=== PATIENT | female | born 1940 | race Caucasian/White ===

== ENCOUNTER 2020-10-15 09:13 | Outpatient (REF) | payer MEDICARE, SELFPAY ==
--- NOTE | ~2020-10-15 | MM_ITS ---
EXAMINATION: MM SCREENING DIGITAL BREAST TOMOSYNTHESIS, BILATERAL CLINICAL INFORMATION: Screening. Asymptomatic. The lifetime risk of breast cancer based on the Tyrer-Cuzick Model is 2%. COMPARISON: Mammography: 10/10/2019, 10/04/2018, 09/29/2017, 09/07/2016 TECHNIQUE: Digital breast tomosynthesis is performed in both the craniocaudal and mediolateral oblique views along with computer-aided detection (CAD). Synthesized 2D images are generated from the tomosynthesis. FINDINGS: The breasts are heterogeneously dense, which may obscure small masses (ACR BI-RADS breast composition Category c). The right CC view has small nodular asymmetric density 5 x 6 mm, 8 cm from nipple, more conspicuous when compared with prior studies. There is no definite correlate on MLO view. Finding may be related to summation artifact or incompletely compressed glandular tissue. Patient will be recalled to further characterize. The remainder of the bilateral breasts show no significant changes from prior study. The left breast has 2 biopsy clip markers, both in the inner and outer quadrants. There are stable grouped coarse calcifications upper outer left breast and scattered bilateral round and vascular calcifications again seen. Skin contours are unremarkable. MM/MM tomosynthesis screening BI IMPRESSION: 1. Right: Question of small asymmetric density mid medial breast. 2. Left: No mammographic evidence of malignancy. ASSESSMENT: BI-RADS 0: Incomplete - Need Additional Imaging Evaluation RECOMMENDATION: 1. Additional views of the right breast (3-D spot CC, 3-D rolled CC). 2. Targeted ultrasound if warranted after review of the additional views. 3. Radiology department staff will contact the patient for additional imaging. This patient's information was entered into a reminder system with a target due date for their next mammogram.
== END 2020-10-15 09:14 | disposition home or self-care (01) ==
LOC: HO.MAMMO 09:13
PROVIDERS: Visit Provider Family Medicine
DX: Z12.31 Encounter for screening mammogram for malignant neoplasm of breast (principal)
CPT/HCPCS: 77063; 77067

== ENCOUNTER 2020-10-29 12:21 | Outpatient (REF) | payer MEDICARE, SELFPAY ==
--- NOTE | ~2020-10-29 | MM_ITS ---
EXAMINATION: MM DIAGNOSTIC DIGITAL BREAST TOMOSYNTHESIS, RIGHT TARGETED RIGHT BREAST ULTRASOUND CLINICAL INFORMATION: Question left breast density medial aspect. COMPARISON: Mammography: 10/15/2020 and studies dating back to 07/02/2011. TECHNIQUE: Digital breast tomosynthesis is performed. 2D images are generated from the tomosynthesis. The following views are obtained: Rolled medial and lateral craniocaudal views and spot compression craniocaudal view. FINDINGS: The breasts are heterogeneously dense, which may obscure small masses (ACR BI-RADS breast composition Category c). Supplementary films appear to efface the density which blends with surrounding tissue. Targeted right breast ultrasound about the medial aspect did not demonstrate any abnormal cystic or solid masses. No region of abnormal distal sound shadowing appreciated. Results are provided to the patient at time of visit by the technologist. MM/MM tomosynthesis added views R IMPRESSION: No persistent right breast density seen medially. No mammographic or ultrasound findings to suggest malignancy. ASSESSMENT: BI-RADS 1: Negative RECOMMENDATION: Routine annual mammography screening due in 12 months. This patient's information was entered into a reminder system with a target due date for their next mammogram.
--- NOTE | ~2020-10-29 | US_ITS ---
EXAMINATION: US DIAGNOSTIC ULTRASOUND BREAST, RIGHT CLINICAL INFORMATION: Right breast density. COMPARISON: October 15, 2020 and studies dating back to July 02, 2011. TECHNIQUE: Ultrasound of the breast is performed with real-time pham scale imaging and color Doppler. FINDINGS: Targeted right breast ultrasound about the medial aspect did not demonstrate any abnormal cystic or solid masses. No region of abnormal distal sound shadowing appreciated. Results are provided to the patient at time of visit by the technologist. US/US breast RT limited IMPRESSION: No persistent right breast density seen medially. No mammographic or ultrasound findings to suggest malignancy. ASSESSMENT: BI-RADS 1: Negative RECOMMENDATION: Routine annual mammography screening due in 12 months.
== END 2020-10-29 12:22 | disposition home or self-care (01) ==
LOC: HO.MAMMO 12:21
PROVIDERS: Visit Provider Family Medicine
DX: R92.1 Mammographic calcification found on diagnostic imaging of breast (principal)
CPT/HCPCS: 76642; 77061; 77065

== ENCOUNTER 2021-10-16 12:24 | Outpatient (REF) | payer MEDICARE, SELFPAY ==
--- NOTE | ~2021-10-16 | MM_ITS ---
EXAMINATION: BONE DENSITOMETRY CLINICAL INDICATION: Menopausal. COMPARISON: Previous BD dated 10/10/2019 and baseline BD dated 12/23/2014. TECHNIQUE: Using a [employer] DXA System (software version: 13.1) manufactured by [employer], dual-energy x-ray absorptiometry was performed of the lumbar spine and left hip. The images are of good technical quality. Summary results are attached. FINDINGS: AP SPINE L1-L2 (excluding L3 and L4): The data of L1-L4 has been changed to exclude the L3 and L4 vertebral bodies, because degenerative changes at these levels may cause overestimation of lumbar spine density. Current: BMD 1.321 g/cm2, Z-score 3.0, T-score 1.3, normal, 1.5% increase from previous, 3.3% increase from baseline (<5% change is not significant). Prior: BMD 1.302 g/cm2. Baseline: BMD 1.279 g/cm2. LEFT FEMUR, NECK: Current: BMD 0.878 g/cm2, Z-score 0.9, T-score -1.1, osteopenia. Prior: BMD 0.822 g/cm2. Baseline: BMD 0.864 g/cm2. LEFT FEMUR, TOTAL: Current: BMD 0.884 g/cm2, Z-score 0.9, T-score -1.0, normal, 2.0% decrease from previous, 3.5% decrease from baseline (<5% change is not significant). Prior: BMD 0.902 g/cm2. Baseline: BMD 0.916 g/cm2. IDENTIFIED RISK FACTORS: Low calcium intake, menopause. HISTORY OF FRACTURE: None listed. MEDICATIONS: Calcium supplements or multivitamin, vitamin D. MM/XR DEXA axial skeleton IMPRESSION: 1. DIAGNOSIS: Osteopenia based on the lowest T-score value of -1.1 in the femoral neck applying World Health Organization criteria. 2. 10-YEAR FRACTURE RISK PREDICTION, FRAX: Major osteoporotic fracture (clinical spine, forearm, hip or shoulder) 12.0%. Hip fracture 2.4%. 3. Treatment Recommendations: NOF guidelines recommend consideration for treatment in postmenopausal women and men age 50 and older presenting with the following: -A hip or vertebral (clinical or morphometric) fracture. -T-score less than or equal to -2.5 at the femoral neck or spine after appropriate evaluation to exclude secondary causes. -Low bone mass at the hip or spine and a 10-year fracture probability by FRAX of greater than or equal to 3% for hip fracture or greater than or equal to 20% for major osteoporotic fracture based on the [place] adapted WHO algorithm. 4. Other Recommendations: All treatment decisions require clinical judgment and consideration of individual patient factors, including patient preferences, comorbidities, previous drug use, risk factors not captured in the FRAX model (e.g. frailty, falls, vitamin D deficiency, increased bone turnover, interval significant decline in bone density) and possible under or overestimation of fracture risk by FRAX. Additional medical evaluation for secondary cause of low bone mineral density may be appropriate. FUTURE SCAN RECOMMENDATION: People with diagnosed cases of osteoporosis or at high risk for fracture should have regular bone mineral density tests. For patients eligible for Medicare, routine testing is allowed once every 2 years. The testing frequency can be increased to one year for patients who have rapidly progressing disease, those who are receiving or discontinuing medical therapy to restore bone mass, or have additional risk factors.
--- NOTE | ~2021-10-16 | MM_ITS ---
EXAMINATION: MM SCREENING DIGITAL BREAST TOMOSYNTHESIS, BILATERAL CLINICAL INFORMATION: Screening. Asymptomatic. The lifetime risk of breast cancer based on the Tyrer-Cuzick Model is 2%. COMPARISON: Mammography: 10/29/2020, 10/15/2020, 10/10/2019, 10/04/2018, 09/29/2017, 09/07/2016 TECHNIQUE: Digital breast tomosynthesis is performed in both the craniocaudal and mediolateral oblique views along with computer-aided detection (CAD). Synthesized 2D images are generated from the tomosynthesis. FINDINGS: The breasts are heterogeneously dense, which may obscure small masses (ACR BI-RADS breast composition Category c). Parenchymal pattern is similar to prior studies. There is no developing density or interval mass or architectural abnormality. There are scattered bilateral round and vascular calcifications as well as stable grouped coarse calcifications left breast posterior upper outer quadrant with adjacent biopsy clip marker. The axilla and skin contours are unremarkable. No significant changes. MM/MM tomosynthesis screening BI IMPRESSION: No mammographic evidence of malignancy. ASSESSMENT: BI-RADS 2: Benign RECOMMENDATION: Routine annual mammography screening. This patient's information was entered into a reminder system with a target due date for their next mammogram.
== END 2021-10-16 12:25 | disposition home or self-care (01) ==
LOC: HO.MAMMO 12:24
PROVIDERS: PCP Family Medicine; Visit Provider Family Medicine
DX: Z12.31 Encounter for screening mammogram for malignant neoplasm of breast (principal); Z13.820 Encounter for screening for osteoporosis; Z78.0 Asymptomatic menopausal state
CPT/HCPCS: 77063; 77067; 77080

== ENCOUNTER 2022-10-20 12:17 | Outpatient (REF) | payer MEDICARE, SELFPAY ==
--- NOTE | ~2022-10-20 | MM_ITS ---
EXAMINATION: MM SCREENING DIGITAL BREAST TOMOSYNTHESIS, BILATERAL CLINICAL INFORMATION: Screening. Asymptomatic. COMPARISON: Mammography: This study is compared with prior exams dating back to 2018. TECHNIQUE: Digital breast tomosynthesis is performed in both the craniocaudal and mediolateral oblique views along with computer-aided detection (CAD). Synthesized 2D images are generated from the tomosynthesis. FINDINGS: The breasts are heterogeneously dense, which may obscure small masses (ACR BI-RADS breast composition Category c). There are no significant masses, abnormal calcifications, or other abnormalities. There are few, benign calcifications in each breast. There are tissue markers in the lateral aspect and medial aspect of the left breast from prior benign percutaneous biopsies. MM/MM tomosynthesis screening BI IMPRESSION: No mammographic evidence of malignancy. ASSESSMENT: BI-RADS BI-RADS 2 - Benign Findings RECOMMENDATION: Routine annual mammography screening. 1 year F/U This examination should not preclude the clinical evaluation of a suspicious palpable abnormality. This patient's information was entered into a reminder system with a target due date for their next mammogram.
== END 2022-10-20 12:18 | disposition home or self-care (01) ==
LOC: HO.MAMMO 12:17
PROVIDERS: PCP Family Medicine; Visit Provider Family Medicine
DX: Z12.31 Encounter for screening mammogram for malignant neoplasm of breast (principal)
CPT/HCPCS: 77063; 77067

== ENCOUNTER → 2022-10-20 12:30 | Outpatient (BNV) | payer MEDICARE, SELFPAY | PROVIDERS: PCP Family Medicine; Visit Provider Radiology Diagnostic Radiology | DX: Z12.31 Encounter for screening mammogram for malignant neoplasm of breast (principal) | CPT/HCPCS: 77063; 77067 ==

== ENCOUNTER 2023-10-31 11:47 | Outpatient (REF) | payer MEDICARE, SELFPAY ==
--- NOTE | ~2023-10-31 | MM_ITS ---
EXAMINATION: MM SCREENING DIGITAL BREAST TOMOSYNTHESIS, BILATERAL CLINICAL INFORMATION: Screening. Asymptomatic. COMPARISON: Mammography: Comparison is made with available priors TECHNIQUE: Digital breast mammography with tomosynthesis is performed in both the craniocaudal and mediolateral oblique views along with computer-aided detection (CAD). FINDINGS: The breasts are heterogeneously dense, which may obscure small masses (ACR BI-RADS breast composition Category c). Left marker clips from previous needle core biopsies. There are no significant masses, abnormal calcifications, or other abnormalities. MM/MM tomosynthesis screening BI IMPRESSION: No mammographic evidence of malignancy. ASSESSMENT: BI-RADS BI-RADS 2 - Benign Findings RECOMMENDATION: Routine annual mammography screening. 1 year F/U This examination should not preclude the clinical evaluation of a suspicious palpable abnormality. This patient's information was entered into a reminder system with a target due date for their next mammogram. Electronically signed by: Ilene Mayberry DO 11/11/2023 09:21 AM EDT
== END 2023-10-31 11:48 | disposition home or self-care (01) ==
LOC: HO.MAMMO 11:47
PROVIDERS: PCP Family Medicine; Visit Provider Family Medicine
DX: Z12.31 Encounter for screening mammogram for malignant neoplasm of breast (principal)
CPT/HCPCS: 77063; 77067

== ENCOUNTER → 2023-10-31 12:00 | Outpatient (BNV) | payer MEDICARE, SELFPAY | PROVIDERS: PCP Family Medicine; Visit Provider Internal Medicine | DX: Z12.31 Encounter for screening mammogram for malignant neoplasm of breast (principal) | CPT/HCPCS: 77063; 77067 ==

== ENCOUNTER 2023-11-17 10:07 | Outpatient (REF) | payer MEDICARE, SELFPAY ==
--- NOTE | ~2023-11-17 | US_ITS ---
EXAMINATION: US RETROPERITONEAL LIMITED (RENAL ONLY) CLINICAL INFORMATION: CKD, rule out obstruction. COMPARISON: None available. TECHNIQUE: Real-time imaging of the kidneys. FINDINGS: RIGHT KIDNEY: 10.7 x 4.7 x 4.6 cm (SAG x AP x TRV). The kidney is normal in size, contour, and echogenicity. Renal cortical thickness is normal. No renal calculi or hydronephrosis. Multiple simple cyst measuring up to 5.4 cm, 1.7 cm and 0.9 cm. These are simple cysts. LEFT KIDNEY: 9.7 x 4.0 x 4.2 cm (SAG x AP x TRV). The kidney is normal in size, contour, and echogenicity. Renal cortical thickness is normal. No renal calculi or hydronephrosis. Multiple renal cysts measuring up to 1.2 cm and 1.2 cm. These are simple cysts commonly benign no follow-up recommended. There is a prominence of the renal pelvis without evidence of hydronephrosis. US/US renal BI IMPRESSION: No ultrasound evidence of renal obstruction or hydronephrosis. Bilateral simple renal cysts these are commonly benign no follow-up imaging is indicated. Mild fullness of the left renal pelvis without evidence of momo hydronephrosis. Electronically signed by: Glenna Jones MD 12/25/2023 07:52 PM [place]
== END 2023-11-17 10:08 | disposition home or self-care (01) ==
LOC: HO.US 10:07
PROVIDERS: PCP Family Medicine; Visit Provider Family Medicine
DX: N18.30 Chronic kidney disease, stage 3 unspecified (principal)
CPT/HCPCS: 76775

== ENCOUNTER 2023-11-22 11:49 | Outpatient (REF) | payer MEDICARE, SELFPAY ==
--- NOTE | ~2023-11-22 | US_ITS ---
EXAMINATION: US SCREENING ULTRASOUND BREAST, BILATERAL CLINICAL INFORMATION: Dense breasts on mammography. Screening ultrasound. COMPARISON: 10/29/2020. Mammography 10/31/2023 multiple priors. TECHNIQUE: Ultrasound is performed using grayscale imaging and color Doppler. Imaging is performed to include the four quadrants and retroareolar region. Both breasts are imaged. FINDINGS: Right breast: There is no suspicious finding by ultrasound. There is no solid mass, cystic abnormality, abnormal shadowing, or focal architectural abnormality. Left breast: There is no suspicious finding by ultrasound. There is no solid mass , cystic abnormality, abnormal shadowing, or focal architectural abnormality. US/US breast BI complete IMPRESSION: No suspicious findings on screening breast ultrasound. Recommend continuing routine screening. ASSESSMENT: BI-RADS 1 - Negative RECOMMENDATION: 1 year F/U This patient's information was entered into a reminder system with a target due date for their next mammogram. Electronically signed by: Vinay Monson MD 12/02/2023 02:00 PM EDT
== END 2023-11-22 11:50 | disposition home or self-care (01) ==
LOC: HO.MAMMO 11:49
PROVIDERS: PCP Family Medicine; Visit Provider Family Medicine
DX: N18.30 Chronic kidney disease, stage 3 unspecified (principal)
CPT/HCPCS: 76641; 76857

== ENCOUNTER → 2023-11-22 12:00 | Outpatient (BNV) | payer MEDICARE, SELFPAY | PROVIDERS: PCP Family Medicine; Visit Provider Radiology Diagnostic Radiology | DX: R92.30 Dense breasts, unspecified (principal) | CPT/HCPCS: 76641 ==

== ENCOUNTER 2023-11-24 13:37 | Outpatient (REF) | payer MEDICARE, SELFPAY ==
--- NOTE | ~2023-11-24 | MM_ITS ---
EXAMINATION: BONE DENSITOMETRY CLINICAL INDICATION: Primary hyperparathyroidism. COMPARISON: Previous BD dated 10/16/2021 and baseline BD dated 12/13/2014. TECHNIQUE: Using a Omniture DXA System (software version: 13.1) manufactured by [employer]), dual-energy x-ray absorptiometry was performed of the lumbar spine, left hip and right forearm radius 33%. The images are of good technical quality. Summary results are attached. FINDINGS: LEFT FEMUR, NECK: Current: BMD 0.895 g/cm2, Z-score 1.3, T-score -1.0, normal. Prior: BMD 0.878 g/cm2. Baseline: BMD 0.864 g/cm2. LEFT FEMUR, TOTAL: Current: BMD 0.826 g/cm2, Z-score 0.8, T-score -1.4, osteopenia, 6.6% decrease from previous, 9.8% decrease from baseline (<5% change is not significant). Prior: BMD 0.884 g/cm2. Baseline: BMD 0.916 g/cm2. AP SPINE L1-L2 (excluding L3 and L4): The data of L1-L4 has been changed to exclude the L3 and L4 vertebral bodies, because degenerative sclerosis at these levels may cause overestimation of lumbar spine density. Current: BMD 1.267 g/cm2, Z-score 2.9, T-score 0.9, normal, 4.1% decrease from previous, 0.9% decrease from baseline (<5% change is not significant). Prior: BMD 1.321 g/cm2. Baseline: BMD 1.279 g/cm2. RIGHT FOREARM RADIUS 33%: BMD 0.699 g/cm2, Z-score 0.9, T-score -2.0, osteopenia, 16.1% decrease from baseline (<5% change is not significant). Baseline: BMD 0.833 g/cm2. IDENTIFIED RISK FACTORS: History of fracture (adult), hyperparathyroid, menopause. HISTORY OF FRACTURE: Other, wrist. MEDICATIONS: Calcium, vitamin D. MM/XR DEXA appendicular skeleton IMPRESSION: 1. DIAGNOSIS: Osteopenia based on the lowest T-score value of -2.0 in the forearm radius 33% applying World Health Organization criteria. 2. 10-YEAR FRACTURE RISK PREDICTION, FRAX: Major osteoporotic fracture (clinical spine, forearm, hip or shoulder) 17.4%. Hip fracture 3.4%. 3. Treatment Recommendations: NOF guidelines recommend consideration for treatment in postmenopausal women and men age 50 and older presenting with the following: -A hip or vertebral (clinical or morphometric) fracture. -T-score less than or equal to -2.5 at the femoral neck or spine after appropriate evaluation to exclude secondary causes. -Low bone mass at the hip or spine and a 10-year fracture probability by FRAX of greater than or equal to 3% for hip fracture or greater than or equal to 20% for major osteoporotic fracture based on the [place] adapted WHO algorithm. 4. Other Recommendations: All treatment decisions require clinical judgment and consideration of individual patient factors, including patient preferences, comorbidities, previous drug use, risk factors not captured in the FRAX model (e.g. frailty, falls, vitamin D deficiency, increased bone turnover, interval significant decline in bone density) and possible under or overestimation of fracture risk by FRAX. Additional medical evaluation for secondary cause of low bone mineral density may be appropriate. FUTURE SCAN RECOMMENDATION: People with diagnosed cases of osteoporosis or at high risk for fracture should have regular bone mineral density tests. For patients eligible for Medicare, routine testing is allowed once every 2 years. The testing frequency can be increased to one year for patients who have rapidly progressing disease, those who are receiving or discontinuing medical therapy to restore bone mass, or have additional risk factors. Electronically signed by: Andriy Ayers MD 12/05/2023 08:10 AM EDT
== END 2023-11-24 13:38 | disposition home or self-care (01) ==
LOC: HO.MAMMO 13:37
PROVIDERS: PCP Family Medicine; Visit Provider Family Medicine
DX: Z13.820 Encounter for screening for osteoporosis (principal); E21.0 Primary hyperparathyroidism
CPT/HCPCS: 77081

== ENCOUNTER 2024-01-30 09:48 | Outpatient (AMB) | payer MEDICARE, SELFPAY ==
--- OUTSIDE RECORDS SUMMARY | 2024-01-30 09:52 | XMS_ITS ---
Author Organization Azar Dewey III, MD Address [address] [place] [address] Care Team Providers Care Airworthiness Safety Inspector Name Role Phone Elvia ALVAREZ, Aristeo Primary Care Provider Unavaila Azar Brambila Unavailable [phone] REASON FOR VISIT Followup Encounters Encounter Location Date Provider Diagnosis Azar Dewey III, MD [address] [place] [address] [place] [address] 11/14/2023 Azar Dewey Plan Of Treatment Next Appt Details Provider Name:Azar [place]wey, 05/16/2024 11:15:00 AM, [address] [place] [address] [address], [place], [address], Progress Notes * Shayne MARTINEZOB: 2 (83 yo F)Acc No.[id number]:11/14/2023 Progress Notes Patient:?Theodora MARTINEZ Provider:?Azar [place] MD :1940???Age:82 Y???Sex:Female D ate:11/14/2023 [facility] [place] [place] Pcp:Aristeo Gan MD Subjective: * Chief Complaints: * ???1. Followup. * Medical History:? Objective: * Vitals:? Assessment: Plan: * Treatment: * Images: * The named appointment provid er may or may not be the originator of this progress note, and it is not deemed complete until electronically signed by the appointment provider. Sign off status: Pending * Provider:?Azar [place] MD Date:?08/2023 Generated for Baldo bey/Dasha/Steve on:?01/30/2024 09:51 AM EST
--- OUTSIDE RECORDS SUMMARY | 2024-01-30 09:52 | XMS_ITS | Continuity of Care Document ---
Author Organization [facility] [address] [place] [address] Phone [phone] Care Team Providers Care Abrasive Wheel Molder Name Role Phone Aristeo Gan M.D. Care Team Information Receiv er [phone] Problems Active Problems Provider Date Hypercholesterolemia Deniz Chavez M.D. Onset : 01/04/2022 History of cerebrovascular accident Deniz burris M.D. Onset: 01/04/2022 Primary hyperparathyroidism Kp Rodriguez Onset: 01/04/2022 Essential hypertension Deniz Chavez M.D. Ons et: 01/04/2022 Social History Type Date Description Comments Sex Unknown Tobacco Use Start: Unknown Never Smoked Cigarettes ETOH Use Denies alcohol use Allergies and adverse reactions Description No Known Drug Allergies Medications Active Medications SIG Qnty Indications Ordering Provider Date Clopidogrel Wgyupdnkn02sk Tablets Take 1 Tablet By Mouth Every Day Aristeo Gan M.D. Losartan Prqlvzdlz627ly Tablets Take 1 Tablet By Mouth Every Day Aristeo Gan M.D. Atorvastatin Togxrpk02eo Tablets Take 1 Tablet By Mouth Every Day Aristeo Gan M.D. Amlodipine Vtpbpjhq5jm Tablets Take 1 Tablet By Mouth Every Day Aristeo Gan M.D. Metformin SNJ0249gn Tablets Take half Tablet By Mouth Twice A Day Aristeo Gan M.D. Vital Signs Date Vital Result Comment 01/04/2022 1:30pm BP Systolic 160 mmHg BP Diastolic 68 mmHg Heart Rate 89 /min Height 63 inches 5'3 Weight 138.00 lb BMI (Body Mass Index) 24.4 kg/m2 Medical Devices Description No Information Available Encounters Type Date Location Provider Dx Diagnosis Office Visit 01/04/2022 1:30p Main Office Deniz Chavez M.D. I10 Essential (primary) hypertension E78.00 Pure hypercholestero lemia, unspecified E21.0 Primary hyperparathy roidism Assessments Date Code Description Provider 01/04/2022 I10 Essential hypertension Deniz Chavez M.D. 01/04/2022 E78.00 Hypercholesterolemia Deniz mishra M.D. 01/04/2022 E21.0 Primary hyperparathyroidism Deniz Chavez M.D. Plan of Treatment No Information Available Functional Status Description No Information Available Mental Status Description No Information Available Referrals Refer to Dr Reason for Referral Status Appt Deniz Mendez M.D. Created [address] [place] [address] [address] [place] [address] [phone]
--- OUTSIDE RECORDS SUMMARY | 2024-01-30 09:52 | XMS_ITS ---
Author Organization Azar [place] III, MD Address [address] [place] [address] Care Team Providers Care Construction Economist Name Role Phone Aristeo Gan MD Primary Care Provider Unavaila Azar Brambila Unavailable [phone] Allergies Allergen (clinical drug ingredient) Drug/Non Drug [...] Date Provider Diagnosis Azar [place] III, MD [address] [place] [address] [place] [address] 11/16/2023 Azar [place] Iron deficiency anemia, unspecified [...] 6 Months,, Reason : ov Provider Name:Azar [place], 05/16/2024 11:15:00 AM, [address] [place] [address] [address], [place], [address], Progress Notes * Shayne MARTINEZOB: 2 (82 yo F)Acc No.[id number]:11/16/2023 Progress Notes Patient:?Theodora MARTINEZ Provider:?Azar [place] MD :1940???Age:82 Y???Sex:Female D ate:11/16/2023 Address:[address] [place], [place] [id number] Pcp:Aristeo Gan MD Subjective: * Chief Complaints: * ???Iron deficiencyHyperlipid emiaHypertensionPeripheral vascular diseaseCarotid stenosisDiabetesHistory of stroke * HPI: ???COVID-19 Screening:?Questions?Have you experienced fever, chills, cough, sore throat, shortness of breath, difficulty breathing, muscle aches, loss of taste or smell??No ?Have you been exposed to the virus within the last 10 days??No ?Have you travelled internationally in the last 10 days??No ?Have you been exposed to COVID-19 in the past??Yes ???:?The patient, an 82-year-old female, visited the doctor [...] 66 hemoglobin A1c 5.9 ferritin 27. * ROS:?General/Constitutional:?pain?only normal aches and pains.?Chills?denies.?Fatigue?admits.?Fever?denies.?ENT:?Decreased hearing?mild.?Respiratory:?Cough?denies.?Cardiovascular:?Chest pain with exertion?denies.?Dyspnea on exertion?denies.?Shortness of breath?denies.?Gastrointestinal:?Constipation?occasional.?Decreased appetite?denies.?Diarrhea?denies.?Heartburn?denies.?Nausea?denies.?Rectal bleeding?denies.?Vomiting?denies.?Hematology:?bruising?denies.?petechiae?denies.?Swollen glands?none have been noted.?Genitourinary:?Frequent urination?at night.?Musculoskeletal:?Muscle aches?denies.?Painful joints?denies.?Sciatica?denies.?Weakness?denies.?Skin:?Itching?denies.?Rash?denies.?Skin lesion(s)?denies.?Neurologic:?Difficulty speaking?denies.?Dizziness?denies.?Headache?denies.?Low back pain?denies.?Psychiatric:?Depressed mood?denies.? * Medical History:? * Surgical History:?Cataract s urgery 08/2020No history * Hospitalization/Major Diagno stic Procedure:?No history * Family History:?Father: dece ased 72 yrs, stomach cancer, diagnosed with Cancer.?Mother: 63 yrs, diabetes mellitus, heart attack, diagnosed with DM.?1 brother(s) , 1 sister(s) - healthy. 2 daughter(s) - healthy. .? Severe diabetes. * Social History:?Tobacco Use:?Tobacco Use/Smoking?Patient is a?nonsmoker ?Additional Findings: Tobacco Non-User?Aggressive non-smoker ???She is a nonmoker. Her PCP is Edwin Wang. She is not a Catholic. 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 She was born in [place], [place]. * Medications:?TakingLosartan Potassium 25 MG Tablet 1 tablet Orally [...] reviewed and reconciled with the patient * Allergies:?No Known Drug All ergyno[Allergies Verified] Objective: * Vitals:?Ht: 62, Wt:139, BMI: 25.42, BP:136/74, HR:77, Temp:97.3, Wt-k.05. * Examination: ???General Examination: ?GENERAL APPEARANCE:?pleasant, well nourished, well developed, in no acute distress, calm and relaxed, overweight, elderly woman.?HEAD:?atraumatic, normocephalic.?EYES:?eomi, perrla, anicteric, conjugate.?EARS:?normal.?NOSE:?septum intact.?ORAL CAVITY:?normal, unremarkable.?NECK/THYROID:?no jugular venous distention, no carotid bruit, thyroid normal.?LYMPH NODES:?no enlarged lymph nodes,spleen normal.?SKIN:?no suspicious lesions, anicteric.?HEART:?no clicks, gallops, murmurs, or rubs, regular rhythm, S1, S2 normal, no s3, or vascular bruits.?LUNGS:?clear to auscultation .?BREASTS:?Not examined.?ABDOMEN:?bowel sounds normal, no ascites, no organomegaly, no mass.?RECTAL EXAM:?not examined.?MUSCULOSKELETAL:?extremities unremarkable, no clubbing, cyanosis or edema.?PERIPHERAL PULSES:?Both carotids are palpable without bruits.?NEUROLOGIC:?alert and oriented, cranial nerves 2-12 grossly intact, deep tendon reflexes 2+ symmetrical, motor strength normal upper and lower extremities, sensory exam intact.?PSYCH:?alert, oriented.? Assessment: * Assessment: 1.?Iron deficiency anemia, u nspecified iron deficiency - D50.9 (Primary)???Notes :Her hematocrit and mean cell volume and ferritin are all in the normal range. Her ferritin is in the normal range at 27. She is no longer taking the iron supplementation. She will be followed carefully at long intervals without it.???2.?Overweight - E66.3???Notes :She is very slightly overweight.? She will stabilize her weight at this level and pursue a healthy Mediterranean diet limiting calories.???3.?Essential hypertension - I10???Notes :Her blood pressure today is 130/70. No change in her regimen was made.???4.?Diabetes mellitus - E11.9???Notes :Her hemoglobin A1c is 5.9. Her fasting glucose was 135. No change in her regimen as needed.???5.?History of stroke - Z86.73???Notes :She suffered a TIA in 2008.? She has mild carotid stenosis.? She will continue on current medications.??? Plan: * Treatment: 2.?Overweight?LAB: PROFILE, RANDOM (COMPREHENSIVE METABOLIC) ?LAB: CBC WITH AUTO DIFF ?LAB: RETIC ?LAB: Ferritin 3.?Others? Continue Ferrous Gluconate Tablet, 324 (38 Fe) MG, TAKE 1 TABLET BY MOUTH TWICE A DAY WITH WATER OR JUICE BETWEEN MEALS.?? * Procedure Codes:? * Preventive Medicine:? ??Counseling:?Care goal follow-up plan:?Counseling for abnormal BMI given?Yes ?Above Normal BMI Follow-up?Dietary management education, guidance, and counseling, Dietary needs education ??DM Care Plan:?Patient Lifestyle Goals?Patient wants to be able to manage diabetes without too much effort.?Treatment Goals?Diabetic Diet to support management, Blood Sugars less than < 115, HbA1C < 7.0.?Barriers?no barriers.?Self-Managment Goals?Work on weight loss, with a goal of losing 1 lb per week, Stop drinking juice and/or soda, replace with more water.? * Follow Up:?6 Months, (Reason : ov) * Images: * Sign off status: Completed true * Provider:?Azar [place] MD Date:?10/2023 Generated for Baldo bey/Dasha/eTransmitting on:?01/30/2024 09:51 AM EST History and Physical Notes * HPI (History of Present Illness) Category Sub-Category Detail Notes COVID-19 Screening Questions Have you had any new onset fever, chills, cough, congestion, sore throat, shortness of breath, muscle aches?: No Have you been exposed to the virus withi n the last 10 days?: No Have you travelled internationally in [facility] last 10 days?: No Have you [...]
--- OUTSIDE RECORDS SUMMARY | 2024-01-30 09:52 | XMS_ITS ---
Author Organization Azar [place] III, MD Address [address] [place] [address] Care Team Providers Care Electronics Technology Instructor Name Role Phone Aristeo Gan MD Primary Care Provider Unavaila Azar Brambila Unavailable [phone] Allergies Allergen (clinical drug ingredient) Drug/Non Drug [...] Date Provider Diagnosis Azar [place] III, MD [address] [place] [address] [place] [address] 07/15/2023 Azar Dairne Iron deficiency anem ia, unspecified iron deficiency [...] Up: 4 Months, Reason: OV Provider Name:Azar Dairne, 05/16/2024 11:15:00 AM, [address] [place] [address] [address], [place], [address], Progress Notes * Shayne MARTINEZOB: 2 (82 yo F)Acc No.[id number]:07/15/2023 Progress Notes Patient:?Theodora Martinez Provider:?Azar [place] MD :1940???Age:82 Y???Sex:Female D ate:07/15/2023 Address:[facility] [place] [facility] Pcp:Aristeo Gan MD Subjective: * Chief Complaints: * ???Iron deficiencyDiabetesPe ripheral vascular diseaseHypertensionHypercalcemia * HPI: ???COVID-19 Screening:? She returns for evaluattion of her iron [...] 127 triglycerides 1:15 HDL 47 LDL 59. ?Questions?Have you experienced fever, chills, cough, sore throat, shortness of breath, difficulty breathing, muscle aches, loss of taste or smell??No ?Have you been exposed to the virus within the last 10 days??No ?Have you travelled internationally in the last 10 days??No ?Have you been exposed to COVID-19 in the past??No * ROS:?General/Constitutional:?pain?only normal aches and pains.?Chills?denies.?Fatigue?admits.?Fever?denies.?ENT:?Decreased hearing?in both ears.?Respiratory:?Cough?denies.?Cardiovascular:?Chest pain with exertion?denies.?Dyspnea on exertion?denies.?Shortness of breath?denies.?Gastrointestinal:?Constipation?occasional.?Decreased appetite?denies.?Diarrhea?denies.?Heartburn?denies.?Nausea?denies.?Rectal bleeding?denies.?Vomiting?denies.?Hematology:?bruising?denies.?petechiae?denies.?Swollen glands?none have been noted.?Genitourinary:?Frequent urination?at night.?Musculoskeletal:?Muscle aches?denies.?Painful joints?denies.?Sciatica?denies.?Weakness?denies.?Skin:?Itching?denies.?Rash?denies.?Skin lesion(s)?denies.?Neurologic:?Difficulty speaking?denies.?Dizziness?denies.?Headache?denies.?Low back pain?denies.?Psychiatric:?Depressed mood?denies.? * Medical History:? * Surgical History:?Cataract s urgery 08/2020 * Hospitalization/Major Diagno stic Procedure:?Denies Past Hospitalization * Family History:?Father: dece ased 72 yrs, stomach cancer, diagnosed with Cancer.?Mother: 63 yrs, diabetes mellitus, heart attack, diagnosed with DM.?1 brother(s) , 1 sister(s) - healthy. 2 daughter(s) - healthy. .? * Social History:?Tobacco Use:?Tobacco Use/Smoking?Patient is a?nonsmoker ?Additional Findings: Tobacco Non-User?Aggressive non-smoker ???She is a nonmoker. Her PCP is Edwin Wang. She is not a Gnosticism. 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 She was born in [place], [place]. * Medications:?TakingLosartan Potassium 25 MG Tablet [...] All ergyno[Allergies Verified] Objective: * Vitals:?Ht: 62, Wt:140, BMI: 25.6, BP:148/79, HR:89, Temp:97.0, Wt-k.5. * Examination: ???General Examination: ?GENERAL APPEARANCE:?pleasant, well nourished, well developed, in no acute distress, calm and relaxed , overweight , elderly woman.?HEAD:?atraumatic, normocephalic.?EYES:?eomi, perrla, anicteric, conjugate.?EARS:?normal.?NOSE:?septum intact.?ORAL CAVITY:?normal, unremarkable.?NECK/THYROID:?no jugular venous distention, no carotid bruit, thyroid normal.?LYMPH NODES:?no enlarged lymph nodes,spleen normal.?SKIN:?no suspicious lesions, anicteric.?HEART:?no clicks, gallops, murmurs, or rubs, regular rhythm, S1, S2 normal, no s3, or vascular bruits.?LUNGS:?clear to auscultation .?BREASTS:?not examined.?ABDOMEN:?bowel sounds normal, no ascites, no organomegaly, no mass , overweight.?RECTAL EXAM:?not examined.?MUSCULOSKELETAL:?extremities unremarkable, no clubbing, cyanosis or edema.?PERIPHERAL PULSES:?normal.?NEUROLOGIC:?alert and oriented, cranial nerves 2-12 grossly intact, deep tendon reflexes 2+ symmetrical, motor strength normal upper and lower extremities, sensory exam intact.?PSYCH:?alert, oriented.? Assessment: * Assessment: 1.?Iron deficiency anemia, u nspecified iron deficiency - D50.9 (Primary), Her hematocrit and mean cell volume and ferritin are all in the normal range. She is no longer taking the iron supplementation. She will be followed carefully at long intervals without it.?2.?Overweight - E66.3, She is very slightly overweight. We discussed diet and nutrition. We made a plan to lose weight at a rate of one half of a pound per week.?3.?Diabetes mellitus - E11.9, Her hemoglobin A1c is 5.8. Her fasting glucose was 97. No change in her regimen as needed.?4.?Hyperlipidemia type II - E78.01, Her lipids are stable and in near target range. No change in her regimen as needed.? Plan: * Treatment: 2.?Overweight?LAB: PROFILE, FASTING (COMPREHENSIVE METABOLIC) ?LAB: CBC WITH AUTO DIFF ?LAB: Ferritin ?LAB: Lipid Panel ?LAB: Microalbumin, Random ?LAB: Hemoglobin A1c 3.?Diabetes mellitus?LAB: PROFILE, FASTING (COMPREHENSIVE METABOLIC) ?LAB: CBC WITH AUTO DIFF ?LAB: Ferritin ?LAB: Lipid Panel ?LAB: Microalbumin, Random ?LAB: Hemoglobin A1c 4.?Hyperlipidemia type II?LAB: PROFILE, FASTING (COMPREHENSIVE METABOLIC) ?LAB: CBC WITH AUTO DIFF ?LAB: Ferritin ?LAB: Lipid Panel ?LAB: Microalbumin, Random ?LAB: Hemoglobin A1c 5.?Others? Continue Ferrous Gluconate Tablet, 324 (38 Fe) MG, TAKE 1 TABLET BY MOUTH TWICE A DAY WITH WATER OR JUICE BETWEEN MEALS.?? * Procedure Codes:? * Preventive Medicine:? ??Counseling:?Care goal follow-up plan:?Counseling for abnormal BMI given?Yes ?Above Normal BMI Follow-up?Dietary management education, guidance, and counseling * Follow Up:?4 Months (Reason: OV) * Images: * Sign off status: Completed true * Provider:?Azar [place] MD Date:?08/2023 Generated for Printi ng/Dasha/eTransmitting on:?01/30/2024 09:51 AM EST History and Physical [...]
--- OUTSIDE RECORDS SUMMARY | 2024-01-30 09:52 | XMS_ITS | Patient Health Record ---
Author Organization Azar Dewey III, MD Address [address] [place] [address] Care Team Providers Care Bessemer Regulator Name Role Phone Aristeo Gan MD Primary Care Provider Unavaila Azar Brambila Unavailable [phone] Allergies Allergen (clinical drug ingredient) Drug/Non Drug Allergy documented on EMR Reaction Allergy Type Onset Date Status No Known Drug Allergy Unknown Drug Allergy Active Reason For Referral No Information Medications Medication SIG (Take, Route, Frequency, Duration) [...] 1 tablet Orally Once a day Active Immunizations Vaccine Route Administration Date Status Comme nts Influenza Unknown 11/12/2013 Administered Social History Tobacco Use: Social History Observation Description Date Details (start date - stop date) Never Smoker NA - NA Tobacco Use/Smoking Question Answer Notes Patient is a nonsmoker Additional Findings: Tobacco Non-User Aggressive non-smoker Alcohol Screen Question Answer Notes Did you have a drink containing alcohol in the p ast year? No Points 0 Interpretation Negative Problems Problem Type SNOMED Code ICD Code Onset Dates Problem Status W/U Status Risk Notes Problem 485697022 Overweight (E66.3) Active confirmed She is very slightly overweight. She will stabilize her weight at this level and pursue a healthy Mediterranean diet limiting calories. Problem 59298795 Diabetes mellitus (E11.9) Active confirmed Her hemoglobin A1c is 5.9. Her fasting glucose was 135. No change in her regimen as needed. Problem 32174474 Hypercalcemia (E83.52) Active confirmed The calcium level is now normal. Problem 07101959 Iron deficiency anemia, unspecified iron deficiency (D50.9) Active confirmed Her hematocrit and mean cell volume and ferritin are all in the normal range. Her ferritin is in the normal range at 27. She is no longer taking the iron supplementation. She will be followed carefully at long intervals without it. Problem 03898402 Essential hypertension (I10) Active confirmed Her blood pressure today is 130/70. No change in her regimen was made. Problem 915445886 Peripheral vascular disease (I73.9) Active confirmed She has know n atherosclerosis of her carotid arteries. She free of any symptoms today. Problem 292174846 History of stroke (Z86.73) Active confirmed She suffered a TIA in 2008. She has mild carotid stenosis. She will continue on current medications. Problem 26123415 Carotid artery stenosis (I65.29) Active confirmed She remains asymptomatic and under the care of the vascular surgeon. Problem Pure hypercholesterole tran (109895821) Hyperlipidemia type II (E78.01) Active confirmed Her lipids are stable and in near target range. No change in her regimen as needed. Vital Signs Heart Rate 77 /min 11/16/2023 Temperature 97.3 degrees Fahrenheit 11/16/2023 Blood pressure diastolic 74 mm Hg 11/16/2023 Height 62 in 11/16/2023 Blood pressure systolic 136 mm Hg 11/16/2023 Weight 139 lbs 11/16/2023 BMI 25.42 kg/m2 11/16/2023 Encounters Encounter Location Date Provider Diagnosis Azar Dewey III, MD [address] [place] [address] [place] [address] 07/15/2023 Azar Dewey Iron deficiency anem ia, unspecified iron deficiency D50.9 ; Overweight E66.3 ; Diabetes mellitus E11.9 and Hyperlipidemia type II E78.01 Azar Dewey III, MD [address] [place] [address] [place] [address] 11/16/2023 Azar Dewey Iron deficiency anem ia, unspecified iron deficiency D50.9 ; Overweight E66.3 ; Essential hypertension I10 ; Diabetes mellitus E11.9 and History of stroke Z86.73 Assessments Encounter Date Diagnosis (ICD Code) Assessment Notes Treat ment Notes Treatment Clinical Notes 07/15/2023 Overweight (ICD-10 - E66.3) She is very slightly overweight. We discussed diet and nutrition. We made a plan to lose weight at a rate of one half of a pound per week. 07/15/2023 Iron deficiency anemia, unspecified iron deficiency [...] a healthy Mediterranean diet limiting calories. 11/16/2023 Iron deficiency anemia, unspecified iron deficiency (ICD-10 - D50.9) Her hematocrit and mean cell volume and ferritin are all in the normal range. Her ferritin is in the normal range at 27. She is no longer taking the iron supplementation. She will be followed carefully at long intervals without it. 07/15/2023 Diabetes mellitus (ICD-10 - E11.9) Her hemoglobin A1c is 5.8. Her fasting glucose was 97. No change in her regimen as needed. 11/16/2023 Essential hypertension (ICD-10 - I10) Her blood pressure today is 130/70. No change in her regimen was made. 07/15/2023 Hyperlipidemia type II (ICD-10 - E78.01) Her lipids are stable and in near target range. No change in her regimen as needed. 11/16/2023 Diabetes mellitus (ICD-10 - E11.9) Her hemoglobin A1c is 5.9. Her fasting glucose was 135. No change in her regimen as needed. 11/16/2023 History of stroke (ICD-10 - Z86.73) She suffered a TIA in 2008. She has mild carotid stenosis. She will continue on current medications. Plan Of Treatment Pending Test Test Name Order Date PROFILE, FASTING (COMPREHENSIVE METABOLI C) 01/14/2023 PROFILE, FASTING (COMPREHENSIVE METABOLI C) 07/15/2023 PROFILE, RANDOM (COMPREHENSIVE METABOLIC ) 01/08/2022 PROFILE, RANDOM (COMPREHENSIVE METABOLIC ) 12/21/2018 PROFILE, RANDOM (COMPREHENSIVE METABOLIC ) 12/27/2019 PROFILE, RANDOM (COMPREHENSIVE METABOLIC ) 06/16/2018 PROFILE, RANDOM (COMPREHENSIVE METABOLIC ) 11/16/2023 PROFILE, RANDOM (COMPREHENSIVE METABOLIC ) 07/09/2021 PROFILE, RANDOM (COMPREHENSIVE METABOLIC ) 07/09/2022 PROFILE, RANDOM (COMPREHENSIVE METABOLIC ) 07/23/2019 PROFILE, RANDOM (COMPREHENSIVE METABOLIC ) 03/23/2019 PROFILE, RANDOM (COMPREHENSIVE METABOLIC ) 12/26/2020 HEMOGLOBIN A1C (GLYCOHEMOGLOBIN) 019 CALCIUM 03/23/2019 CALCIUM 07/23/2019 FERRITIN 07/23/2019 FERRITIN 12/26/2020 FERRITIN 03/23/2019 FERRITIN 12/21/2018 FERRITIN 12/27/2019 FERRITIN 06/16/2018 FERRITIN 07/09/2022 CBC w DIFF 07/09/2022 CBC w DIFF 07/23/2019 CBC w DIFF 01/08/2022 CBC w DIFF 12/26/2020 CBC w DIFF 03/23/2019 CBC w DIFF 12/21/2018 CBC w DIFF 07/09/2021 CBC w DIFF 12/27/2019 CBC w DIFF 06/16/2018 RETICULOCYTE COUNT,CORRECTED 12/21/2018 CBC WITH AUTO DIFF 01/14/2023 CBC WITH AUTO DIFF 07/15/2023 CBC WITH AUTO DIFF 11/16/2023 RETIC 11/16/2023 Ferritin 11/16/2023 Ferritin 01/08/2022 Ferritin 01/14/2023 Ferritin 07/15/2023 Ferritin 07/09/2021 Lipid Panel 01/14/2023 Lipid Panel 07/15/2023 Microalbumin, Random 07/15/2023 Microalbumin, Random 01/14/2023 Hemoglobin A1c 01/14/2023 Hemoglobin A1c 07/15/2023 Next Appt Details Provider Name:Azar Dewey, 05/16/2024 11:15:00 AM, [address] [place] [address] , [address], [place], [address], Insurance Providers Payer Name Payer Address Payer Phone Subscriber Number Group Number Insured Name Patient Relationship to Insured Coverage Start Date Coverage End Date [facility] [address] [place] [address] [phone] [id number] Theodora Mccormack Self - patient is the insured MEDICARE NGS [address] [place] [phone] [id number] Theodora Mccormack Self - patient is the insured Medical (General) History Medical History History ICD Code hypertension diabetes mellitus stroke 2008 anemia hyperlipidemia bilateral carotid stenosis postmenopausal Surgical History Surgery Date(Month/Year) Cataract surgery 08/2020 No history Hospitalization History Reason Date(Month/Year) No history
[2024-01-30 09:55] VITALS: BP 160/70; PULSE 99; O2SAT 98; BMI 23.9
--- NOTE | 2024-01-30 09:55 | HO.NEPHOV_ITS ---
Vital Signs 01/30/24 09:55 01/30/24 10:11 Height 5 ft 3 in Weight 135 lb BMI 23.9 BP 160/70 H 144/70 H Blood Pressure Location Lt brachial Lt brachial Position Sitting Sitting Pulse 99 Pulse Source Pulse Oximeter Pulse Oximetry (%) 98 Oxygen Delivery Method Room Air Intake Visit Reasons: ENP: CKD STG3A/ conf Senior Attorney Required: No Accompanied by: Self / Same As Patient Allergies No Known Allergies Allergy (Verified 01/30/24 09:58) Medication List - Last Reconciled 01/30/24 by Branden Conley MD amlodipine 5 mg PO DAILY aspirin 81 mg PO DAILY atorvastatin 40 mg PO DAILY ferrous gluconate 324 mg PO DAILY losartan 100 mg PO DAILY metformin 1,000 mg PO DAILY HPI Comments Details: Theodora is a pleasant 83-year-old woman with history of hypertension. She has mild CKD with a creatinine 1.01 She had mild hypercalcemia in the range of 10.5. In the past she did not have any monoclonal proteins. [place] lambda chain were checked and ratio was normal She has history of chronic anemia she sees Dr. Dewey. She has been treated for iron deficiency anemia. She has been taking vitamin-D 1000 units once a day for quite some time. [facility] Medical History (Updated 01/30/24 @ 10:08 by Branden Conley MD) Tremor of both hands Primary hyperparathyroidism Prediabetes PAD (peripheral artery disease) Iron deficiency anemia Hypertension Hyperlipidemia Hypercalcemia CKD (chronic kidney disease), stage III Anemia Review of Systems Const Denies fever(s) and Denies weight loss Card Denies chest pain Resp Denies cough and Denies hemoptysis GI Denies abdominal pain, Denies diarrhea and Denies nausea Musc Denies back pain Neuro Denies focal weakness Physical Exam Vital Signs: Last Vital Signs Pulse 99 01/30/24 09:55 BP 160/70 H 01/30/24 09:55 Pulse Ox 98 01/30/24 09:55 Oxygen Delivery Method Room Air 01/30/24 09:55 BMI result Body Mass Index 23.9 Const General: comfortable; No acute distress Orientation/consciousness: patient oriented x3 Eyes General: appearance normal, both eyes and all related structures Visual Cedillo: normal visual cedillo by confrontation Neck Neck: Yes supple and Yes no JVD Resp Effort & Inspection: normal respiratory effort and respiratory effort not decreased Auscultation: rhonchi Cardio Palpation: no palpable S3 and no palpable S4 Heart sounds: no rubs GI Inspection: Yes normal to inspection Palpation (GI): Soft to palpation Percussion: Yes normal to percussion Auscultation: normal bowel sounds General: Yes no CVA tenderness Back/Spine/Pelvis Back: no CVA tenderness Skin General skin exam: no petechiae and no purpura Neuro General: patient oriented x3 and no focal motor deficits Extrem General: No clubbing and No edema Results Reviewed Nephrology Results: Hgb 11.8 g/dL (12.0-16.0) L 03/14/19 WBC 12.5 X10*3/uL (4.8-10.8) H 03/14/19 Plt Count 164 X10*3/uL (160-400) 03/14/19 Sodium 141 MMOL/L (135-145) 03/14/19 Potassium 4.5 MMOL/L (3.3-5.1) 03/14/19 Chloride 105 MMOL/L (96-108) 03/14/19 BUN 17 MG/DL (9-16) H 03/14/19 Creatinine 0.96 MG/DL (0.5-1.4) 03/14/19 Calcium 10.7 MG/DL (8.4-10.2) H 03/14/19 Renal US 11/17/23 Assessment & Plan Assessment & Plan (1) CKD (chronic kidney disease), stage III: Code(s): N18.30 - Chronic kidney disease, stage 3 unspecified Category: Medical (2) Hypercalcemia: Code(s): E83.52 - Hypercalcemia Category: Medical Plan Theodora is a 83-year-old woman with mild CKD in the setting of longstanding hypertension. She might have some age-related decline in EGFR. Overall renal function stable. Hypercalcemia. In the past there were no monoclonal proteins. She has been taking vitamin-D 1000 units a day and she could have hyperkalemia due to excessive vitamin-D intake. Recommendations Stop vitamin-D 1000 units once a day for now. Recheck calcium, intact PTH in 1 month along with serum immunofixation. If serum calcium remains elevated despite stopping vitamin-D supplementation we will proceed with further workup. Office readings are slightly elevated most likely due to white coat effect. We will watch this for now. Monitor blood pressure at home Continue to stay on low-sodium diet. Orders: Orders Parathyroid Hormone Intact 4 Weeks E83.52 - Hypercalcemia, N18.30 - Chronic kidney disease, stage 3 unspecified Phosphorus 4 Weeks E83.52 - Hypercalcemia, N18.30 - Chronic kidney disease, stage 3 unspecified Immunofixation Pnl, Serum 4 Weeks E83.52 - Hypercalcemia, N18.30 - Chronic kidney disease, stage 3 unspecified Basic Metabolic Panel 4 Weeks E83.52 - Hypercalcemia, N18.30 - Chronic kidney disease, stage 3 unspecified Coding Level of Care Code New Pt Level 4 (66853) Diagnoses CKD (chronic kidney disease), stage III N18.30 Hypercalcemia E83.52
[2024-01-30 10:11] VITALS: BP 144/70
== END 2024-01-30 10:11 | disposition home or self-care (01) ==
PROVIDERS: PCP Family Medicine; Referring Provider Family Medicine; Visit Provider Internal Medicine Hypertension Specialist
DX: N18.30 Chronic kidney disease, stage 3 unspecified (principal); E83.52 Hypercalcemia
CPT/HCPCS: 99204

== ENCOUNTER → 2024-01-30 09:48 | Outpatient (BNVA) | payer MEDICARE, SELFPAY | PROVIDERS: PCP Family Medicine; Referring Provider Family Medicine; Visit Provider Internal Medicine Hypertension Specialist | DX: N18.30 Chronic kidney disease, stage 3 unspecified (principal); E83.52 Hypercalcemia | CPT/HCPCS: 99202 ==

== ENCOUNTER 2024-03-01 10:54 | Outpatient (AMB) | payer MEDICARE, SELFPAY ==
[2024-03-01 10:56] VITALS: BP 148/60; PULSE 96; O2SAT 97; BMI 24.1
--- NOTE | 2024-03-01 10:56 | HO.NEPHOV ---
Vital Signs 03/01/24 10:56 03/01/24 11:04 Height 5 ft 3 in Weight 136 lb BMI 24.1 BP 148/60 H 130/60 Blood Pressure Location Lt brachial Lt brachial Position Sitting Sitting Pulse 96 Pulse Source Pulse Oximeter Pulse Oximetry (%) 97 Oxygen Delivery Method Room Air Intake Visit Reasons: CKD-Conf General Repairer Required: No Accompanied by: Self / Same As Patient Allergies No Known Allergies Allergy (Verified 03/01/24 10:58) Medication List - Last Reconciled 03/01/24 by Branden Conley MD amlodipine 5 mg PO DAILY aspirin 81 mg PO DAILY atorvastatin 40 mg PO DAILY ferrous gluconate 324 mg PO DAILY losartan 100 mg PO DAILY metformin 1,000 mg PO DAILY HPI Comments Details: Theodora is a pleasant 83-year-old woman with history of hypertension. She has mild CKD with a creatinine 1.01 She had mild hypercalcemia in the range of 10.5. In the past she did not have any monoclonal proteins. [place] lambda chain were checked and ratio was normal She has history of chronic anemia she sees Dr. Dewey. She has been treated for iron deficiency anemia. She has been taking vitamin-D 1000 units once a day for quite some time. 03/01/24 Overall doing well. No new issues She is off Vit D [facility] Medical History (Updated 01/30/24 @ 10:08 by Branden Conley MD) Tremor of both hands Primary hyperparathyroidism Prediabetes PAD (peripheral artery disease) Iron deficiency anemia Hypertension Hyperlipidemia Hypercalcemia CKD (chronic kidney disease), stage III Anemia Physical Exam Vital Signs: Last Vital Signs Pulse 96 03/01/24 10:56 BP 130/60 03/01/24 11:04 Pulse Ox 97 03/01/24 10:56 Oxygen Delivery Method Room Air 03/01/24 10:56 BMI result Body Mass Index 24.1 Comfortable Neck supple no JVD. Lungs entry equal no rales. Heart S1-S2 heard no gallop or rub. Abdomen soft nontender. Neuro alert awake oriented. No asterixis. Extremities no edema. Results Reviewed Results Reviewed: US/US renal BI IMPRESSION: No ultrasound evidence of renal obstruction or hydronephrosis. Bilateral simple renal cysts these are commonly benign no follow-up imaging is indicated. Mild fullness of the left renal pelvis without evidence of momo hydronephrosis. Nephrology Results: Renal US 11/17/23 Assessment & Plan Assessment & Plan (1) CKD (chronic kidney disease), stage III: Code(s): N18.30 - Chronic kidney disease, stage 3 unspecified Category: Medical (2) Hypercalcemia: Code(s): E83.52 - Hypercalcemia Category: Medical Plan Theodora is a 83-year-old woman with mild CKD in the setting of longstanding hypertension. She might have some age-related decline in EGFR. Overall renal function stable. Creatinine is down to 0.9 Hypercalcemia. In the past there were no monoclonal proteins. She has been taking vitamin-D 1000 units a day and she could have hyperkalemia due to excessive vitamin-D intake. Continue to hold vitamin-D 1000 units once a day for now. No MCGP serum calcium remains elevated despite stopping vitamin-D supplementation Would recheck Ca and PTH in 2-3 months IF Ca is high, she would need a parathyroid scan BP is better controlled Monitor blood pressure at home Continue to stay on low-sodium diet. Orders: Orders Basic Metabolic Panel 3 Months E83.52 - Hypercalcemia, N18.30 - Chronic kidney disease, stage 3 unspecified Parathyroid Hormone Intact 3 Months E83.52 - Hypercalcemia, N18.30 - Chronic kidney disease, stage 3 unspecified Coding Level of Care Code Est Pt Level 4 (02441) Diagnoses CKD (chronic kidney disease), stage III N18.30 Hypercalcemia E83.52
[2024-03-01 11:04] VITALS: BP 130/60
== END 2024-03-01 11:10 | disposition home or self-care (01) ==
PROVIDERS: PCP Family Medicine; Visit Provider Internal Medicine Hypertension Specialist
DX: N18.30 Chronic kidney disease, stage 3 unspecified (principal); E83.52 Hypercalcemia
CPT/HCPCS: 99214

== ENCOUNTER → 2024-03-01 10:54 | Outpatient (BNVA) | payer MEDICARE, SELFPAY | PROVIDERS: PCP Family Medicine; Visit Provider Internal Medicine Hypertension Specialist | DX: I12.9 Hypertensive chronic kidney disease with stage 1 through stage 4 chronic kidney disease, or unspecified chronic kidney disease (principal); N18.30 Chronic kidney disease, stage 3 unspecified; E83.52 Hypercalcemia | CPT/HCPCS: 99212 ==

== ENCOUNTER 2024-05-31 12:09 | Outpatient (AMB) | payer MEDICARE, SELFPAY ==
[2024-05-31 12:08] VITALS: BP 142/94; PULSE 86; O2SAT 97; BMI 24.5
--- NOTE | 2024-05-31 12:08 | HO.NEPHOV ---
Vital Signs 05/31/24 12:08 Height 5 ft 3 in Weight 138 lb 4 oz BMI 24.5 BP 142/94 H Blood Pressure Location Rt brachial Position Sitting Pulse 86 Pulse Source Pulse Oximeter Pulse Oximetry (%) 97 Oxygen Delivery Method Room Air Intake Visit Reasons: 3mon follow-up w/labs Conf Allergies No Known Allergies Allergy (Verified 05/31/24 12:12) Medication List - Last Reconciled 05/31/24 by Branden Conley MD amlodipine 5 mg PO DAILY aspirin 81 mg PO DAILY atorvastatin 40 mg PO DAILY losartan 100 mg PO DAILY metformin 1,000 mg PO DAILY HPI Comments Details: Theodora is a pleasant 83-year-old woman with history of hypertension. She has mild CKD with a creatinine 1.01 She had mild hypercalcemia in the range of 10.5. In the past she did not have any monoclonal proteins. [place] lambda chain were checked and ratio was normal She has history of chronic anemia she sees Dr. Dewey. She has been treated for iron deficiency anemia. She has been taking vitamin-D 1000 units once a day for quite some time. 03/01/24 Overall doing well. No new issues ; She is off Vit D 05/31/24 Home BP has been in the normal range. No specific complaints today. [facility] Medical History Tremor of both hands Primary hyperparathyroidism Prediabetes PAD (peripheral artery disease) Iron deficiency anemia Hypertension Hyperlipidemia Hypercalcemia CKD (chronic kidney disease), stage III Anemia Physical Exam Vital Signs: Last Vital Signs Pulse 86 05/31/24 12:08 BP 142/94 H 05/31/24 12:08 Pulse Ox 97 05/31/24 12:08 Oxygen Delivery Method Room Air 05/31/24 12:08 BMI result Body Mass Index 24.5 Comfortable Neck supple no JVD. Lungs entry equal no rales. Heart S1-S2 heard no gallop or rub. Abdomen soft nontender. Neuro alert awake oriented. No asterixis. Extremities no edema. Results Reviewed Results Reviewed: 05/23/2024. BUN 21 Creatinine 1.0 Potassium 5.0. Calcium 10.3 Intact PTH 76. Nephrology Results: Renal US 11/17/23 Assessment & Plan Assessment & Plan (1) CKD (chronic kidney disease), stage III: Code(s): N18.30 - Chronic kidney disease, stage 3 unspecified Category: Medical (2) Hypercalcemia: Code(s): E83.52 - Hypercalcemia Category: Medical Plan Theodora is a 83-year-old woman with mild CKD in the setting of longstanding hypertension. She might have some age-related decline in EGFR. Overall renal function stable. Creatinine is down to 0.9 Hypercalcemia. In the past there were no monoclonal proteins. She has been taking vitamin-D 1000 units a day and she could have hyperkalemia due to excessive vitamin-D intake. Continue to hold vitamin-D 1000 units once a day for now. No MCGP serum calcium remains elevated despite stopping vitamin-D supplementation Mild elevation in PTH (76) - probably has primary hyperpara- Shall watch for now BP is better controlled at home Office reading is slightly elevated Shall watch Monitor blood pressure at home Continue to stay on low-sodium diet. Orders: Orders Basic Metabolic Panel 6 Months E83.52 - Hypercalcemia, N18.30 - Chronic kidney disease, stage 3 unspecified Parathyroid Hormone Intact 6 Months E83.52 - Hypercalcemia, N18.30 - Chronic kidney disease, stage 3 unspecified Phosphorus 6 Months E83.52 - Hypercalcemia, N18.30 - Chronic kidney disease, stage 3 unspecified Coding Level of Care Code Est Pt Level 4 (05937) Diagnoses CKD (chronic kidney disease), stage III N18.30 Hypercalcemia E83.52
--- OUTSIDE RECORDS SUMMARY | 2024-05-31 14:25 | XMS_ITS | Continuity of Care Document ---
Author Organization [facility] [address] [place] [address] Phone [phone] Care Team Providers Care Varsity Baseball Coach Name Role Phone Aristeo Gan M.D. Care Team Information Receiv er [phone] Problems Active Problems Provider Date Hypercholesterolemia Deniz [...] SIG Qnty Indications Ordering Provider Date Clopidogrel Soksatxex36bh Tablets Take 1 Tablet By Mouth Every Day Aristeo Gan M.D. Losartan Iwokzmxhj925sy Tablets Take 1 Tablet By Mouth Every Day Aristeo Gan M.D. Atorvastatin Dggsfbb20gl Tablets Take 1 Tablet By Mouth Every Day Aristeo Gan M.D. Amlodipine Owqflecp2gb Tablets Take 1 Tablet By Mouth Every Day Aristeo Gan M.D. Metformin [id number] Tablets Take half Tablet By Mouth Twice [...] Referral Status Appt Deniz Mendez M.D. Created [address] [place] [address] [address] [place] [address] [phone]
== END 2024-05-31 12:20 | disposition home or self-care (01) ==
LOC: HO.HKA 12:10
PROVIDERS: PCP Family Medicine; Visit Provider Internal Medicine Hypertension Specialist
DX: N18.30 Chronic kidney disease, stage 3 unspecified (principal); E83.52 Hypercalcemia
CPT/HCPCS: 99214

== ENCOUNTER → 2024-05-31 12:09 | Outpatient (BNVA) | payer MEDICARE, SELFPAY | PROVIDERS: PCP Family Medicine; Visit Provider Internal Medicine Hypertension Specialist | DX: I12.9 Hypertensive chronic kidney disease with stage 1 through stage 4 chronic kidney disease, or unspecified chronic kidney disease (principal); E83.52 Hypercalcemia; N18.30 Chronic kidney disease, stage 3 unspecified | CPT/HCPCS: 99212 ==

== ENCOUNTER 2024-11-20 13:18 | Outpatient (REF) | payer MEDICARE, SELFPAY ==
--- OUTSIDE RECORDS SUMMARY | 2023-07-15 06:30 | XMS_ITS ---
Author Organization Azar Dewey III, MD Address [address] [place] [address] Care Team Providers Care Associate Store Manager Name Role Phone Benedicto ALVAREZ, Luz Maria Primary Care Provider Azar Jacobson III [phone] Aristeo Gan MD Unavailable Unavailable Dr. Azar Dewey III Unavailable Allergies Allergen (clinical drug ingredient) Drug/Non Drug [...] Provider Diagnosis Azar Dewey III, MD [address] [place] [place] [address] 07/15/2023 Azar Dewey Iron deficiency anem ia, [...] Provider Name:Azar Dewey , 02/14/2025 09:15:00 AM, [address] [place] [address] ORTIZ MOYER, MAINE LOPEZ, [address], Progress Notes * Shayne MARTINEZOB: 2 (82 yo F)Acc No.[id number]:07/15/2023 Progress Notes Patient: Theodora Guthrie Provider: Rylan Dewey MD :1940 A ge:82 Y S ex:Female Date:07/15/2023 Address:[address] [place], [place] [id number] Pcp:Aristeo Gan MD Subjective: * Chief Complaints: [...] is Edwin Wang. She is not a Pentecostal. 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 She was born in [place], [place]. * Medications: T akingLosartan Potassium 25 [...] 0 07/15/2023 Generated for Baldo bey/Dasha/Caitting on: 1 04:05 PM EDT History and Physical Notes * [...]
--- OUTSIDE RECORDS SUMMARY | 2023-11-14 13:15 | XMS_ITS ---
Author Organization Azar Dewey III, MD Address [address] [place] [address] [facility] [place] [address] Care Team Providers Care Learn To Swim Instructor Name Role Phone Benedicto ALVAREZ, Luz Maria Primary Care Provider Azar Jacobson III [phone] Elvia ALVAREZ, Aristeo Unavailable Unavailable Dr. Azar Dewey III REASON FOR VISIT Followup Encounters Encounter Location Date Provider Diagnosis Azar Dewey III, MD [address] [place] [address] [place] [address] 11/14/2023 Azar Dewey Plan Of Treatment Next Appt Details Provider Name:Azar Dewey , 02/14/2025 09:15:00 AM, [address] [place] [address] [place], [address], Progress Notes * Maggie MARTINEZGloryOB: 2 (83 yo F)Acc No.[id number]:11/14/2023 Progress Notes Patient: Theodora BEVERLY Provider: Rylan Dewey MD :1940 A ge:82 Y S ex:Female Date:11/14/2023 Address:[address] [place], [id number] Pcp:Luz Maria Diane MD Subjective: * [...] MD Date: Generated for Baldo bey/Dasha/Steve on: 04:05 PM EDT
--- OUTSIDE RECORDS SUMMARY | 2023-11-16 06:45 | XMS_ITS ---
Author Organization Azar Dewey III, MD Address [address] [place] [address] Care Team Providers Care Concrete Pouring Supervisor Name Role Phone Benedicto ALVAREZ, Luz Maria Primary Care Provider Azar Jacobson III [phone] Aristeo Gan MD Unavailable Unavailable Dr. Azar Dewey III Unavailable [phone] Allergies Allergen (clinical drug ingredient) Drug/Non Drug [...] Date Provider Diagnosis Azar Dewey III, MD [address] [place] [address] [address] [place] [address] 11/16/2023 Azar Dewey Iron deficiency anemia, unspecified [...] Provider Name:Azar Dewey , 02/14/2025 09:15:00 AM, [address] [place] [address] [address], [place], [address], Progress Notes * Shayne MARTINEZOB: 2 (82 yo F)Acc No.[id number]:11/16/2023 Progress Notes Patient: Theodora BEVERLY Provider: Rylan Dewey MD :1940 A ge:82 Y S ex:Female Date:11/16/2023 Address:[address] [place], [place] [id number] Pcp:Aristeo Gan MD Subjective: * Chief Complaints: [...] is Edwin Wang. She is not a Sikhism. 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 She was born in [place], [place]. * Medications: T akingLosartan Potassium 25 [...] MD Date: Generated for Baldo bey/Dasha/Caitting on: 04:05 PM EDT History and Physical Notes * HPI (History of Present Illness) Category Sub-Category Detail Notes COVID-19 Screening Questions Have you had any new onset fever, chills, cough, congestion, sore throat, shortness of breath, muscle aches?: No Have you been exposed to the virus withi n the last 10 days?: No Have you travelled internationally in [facility] last 10 days?: No Have you been [...]
--- OUTSIDE RECORDS SUMMARY | 2024-05-16 07:15 | XMS_ITS ---
Author Organization Azar Dewey III, MD Address [address] [address] Care Team Providers Care Post Acute Care Registered Nurse Name Role Phone Benedicto ALVAREZ, Luz Maria Primary Care Provider Azar Jacobson III [phone] Aristeo Gan MD Unavailable Unavailable Dr. Azar Dewey III Unavailable [phone] Allergies Allergen (clinical drug ingredient) Drug/Non Drug [...] Date Provider Diagnosis Azar Dewey III, MD [address] [place] [address] [address] [place], [place] [address] 05/16/2024 Azar Dewey Iron deficiency anem ia, [...] Provider Name:Azar Dewey , 02/14/2025 09:15:00 AM, [address] [place] [address] DR, [facility] [address], [place], [address], Progress Notes * Shayne MARTINEZOB: 2 (83 yo F)Acc No.[id number]:05/16/2024 Progress Notes Patient: Theodora BEVERLY Provider: Rylan Dewey MD :1940 A ge:83 Y S ex:Female Date:05/16/2024 Address:[address] [place], [place] [address] Pcp:Aristeo Gan MD Subjective: * Chief Complaints: [...] is Edwin Wang. She is not a Voodoo. 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 She was born in [place], [place]. * Medications: T akingLosartan Potassium 25 [...] 0 05/16/2024 Generated for Baldo bey/Dasha/Caitting on: 04:05 PM [...]
--- OUTSIDE RECORDS SUMMARY | 2024-11-15 05:00 | XMS_ITS ---
Author Organization Azar Dewey III, MD Address [address] [place] [address] Care Team Providers Care Iron Miner Blasting Name Role Phone Benedicto ALVAREZ, Luz Maria Primary Care Provider Azar Jacobson III [phone] Aristeo Gan MD Unavailable Unavailable Dr. Azar Dewey III Unavailable Allergies Allergen (clinical drug ingredient) Drug/Non Drug Allergy documented on EMR Reaction Allergy Type Onset Date Status No Known Drug Allergy Unknown Drug Allergy Active REASON FOR VISIT Iron deficiency, Hypercalcemia, Hyperlipidemia, Peripheral vascular disease, Leukocytosis secondaryto neutrophils Medications Medication SIG (Take, Route, Frequency, Duration) [...] nonsmoker Additional Findings: Tobacco Non-User Aggressive non-smoker Problems Problem Type SNOMED Code ICD Code Onset Dates Problem Status W/U Status Risk Notes Problem [id number] Neutrophilic leukocytosis (D72.828) Active confirmed Her neutrophil count is slightly elevated. This will be followed carefully. Cause is unknown. Vital Signs Temperature 97.2 degrees Fahrenheit 11/16/19 25 Blood pressure systolic 139 mm Hg 11/16/19 25 Blood pressure diastolic 76 mm Hg 025 Heart Rate 77 /min 11/15/2024 Height 62 in 11/15/2024 Weight 135 lbs 11/15/2024 BMI 24.69 kg/m2 11/15/2024 Encounters Encounter Location Date Provider Diagnosis Azar Dewey III, MD [address] [place] [address] [address] [place], [place] [address] 11/15/2024 Azar Dewey Iron deficiency anem ia, unspecified iron deficiency D50.9 ; Essential hypertension I10 ; Peripheral vascular disease I73.9 ; Overweight E66.3 ; Diabetes mellitus E11.9 ; History of stroke Z86.73 ; Carotid artery stenosis I65.29 ; Hypercalcemia E83.52 ; Hyperlipidemia type II E78.01 and Neutrophilic leukocytosis D72.828 Assessments Encounter Date Diagnosis (ICD Code) Assessment Notes Treat ment Notes Treatment Clinical Notes 11/15/2024 Iron deficiency anemia, unspecified iron deficiency (ICD-10 - D50.9) Her hematocrit and mean cell volume and ferritin are all in the normal range. Her ferritin is in the normal range at 231She is no longer taking the iron supplementation. She will be followed carefully at long intervals without it. 11/15/2024 Essential hypertension (ICD-10 - I10) Her blood pressure is currently stable. 11/15/2024 Peripheral vascular disease (ICD-10 - I73.9) She denies any lower extremity claudication or neurological symptoms. I did not hear a carotid bruit today. 11/15/2024 Overweight (ICD-10 - E66.3) She has lost 3 pounds since her last visit. Her body mass index is now in the normal range. We reviewed her diet and nutrition and weight loss strategy today. 11/15/2024 Diabetes mellitus (ICD-10 - E11.9) She reports her fasting glucose levels are under 150. I have added a hemoglobin A1c to her next set of labs. 11/15/2024 History of stroke (ICD-10 - Z86.73) She suffered a TIA in 2008. She has mild carotid stenosis. She will continue on current medications. 11/15/2024 Carotid artery stenosis (ICD-10 - I65.29) She remains asymptomatic and under the care of the vascular surgeon. 11/15/2024 Hypercalcemia (ICD-1 0 - E83.52) The calcium level is now normal. 11/15/2024 Hyperlipidemia type II (ICD-10 - E78.01) Her lipids are stable and in near target range. No change in her regimen as needed. 11/15/2024 Neutrophilic leukocytosis (ICD-10 - D72.828) Her neutrophil count is slightly elevated. This will be followed carefully. Cause is unknown. Plan Of Treatment Medication Medication Name Sig [...] Order Date PROFILE, FASTING (COMPREHENSIVE METABOLI C) 11/15/2024 CBC w DIFF 11/15/2024 Ferritin 11/15/2024 Next Appt Details Follow Up: 3 Months, Reason: ov review labs Provider Name:Azar Dewey , 02/14/2025 09:15:00 AM, [address] [place] [address], [address], Progress Notes * Shayne MARTINEZOB: 2 (83 yo F)Acc No.[id number]:11/15/2024 Progress Notes Patient: Theodora BEVERLY Provider: Rylan Dewey MD :1940 A ge:83 Y S ex:Female Date:11/15/2024 Address:[address] [place], [place] [id number] Pcp:Luz Maria Diane MD Subjective: * Chief Complaints: * I mitra deficiencyHypercalcemiaHyperlipidemiaPeripheral vascular diseaseLeukocytosis secondary to neutrophils * HPI: C OVID-19 Screening: She is seen periodically for follow-up of a history of iron deficiency anemia. She no longer takes ferrous sulfate supplements. She has a history of hypertension carotid stenosis and hyperlipidemia as well as diabetes mellitus. Since her last visit she has been feeling healthy and well.Blood work Was done November 06, 2024 showed white count 14.5 with 10,500 neutrophils and 2400 lymphocytes, hematocrit 34.4 with mean cell volume 98 lately is 229 glucose 100 BUN 17 creatinine 0.98 ferritin 2.5. Leukocytosis is unexplained. Questions H ave you had any new onset fever, chills, cough, congestion, sore throat, shortness of breath, muscle aches? N o * ROS: G eneral/Constitutional: pain o nly normal aches and pains. C hills d enies.?Fatigue a dmits. F ever d enies. E NT: Decreased hearing d enies. R espiratory: Cough d enies. C ardiovascular: Chest pain with exertion d enies. D yspnea on exertion?denies. S hortness of breath w ith exertion. G astrointestinal: Constipation o ccasional. D ecreased appetite d enies. D iarrhea d enies. H eartburn d enies. N ausea d enies. R ectal bleeding d enies. V omiting d enies. H ematology: bruising d enies. p etechiae d enies. S wollen glands n one have been noted. G enitourinary: Frequent urination d enies. M usculoskeletal: Muscle aches d enies. P [...] is Edwin Wang. She is not a Cheondoism. 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 She was born in [place], [place]. * Medications: T akingLosartan Potassium 25 [...] Verified] Objective: * Vitals: H t: 62, Wt:135, BMI:24.69, BP:139/76, HR:77, Temp:97.2, Wt-k.23. * Examination: G eneral Examination: GENERAL APPEARANCE: p leasant, well nourished, well developed, in no acute distress, calm and relaxed: elderly woman. HEAD: a traumatic, normocephalic. EYES: [...] extremities, sensory exam intact. PSYCH: a lert, oriented: thought process logical, goal directed: good eye contact: speech clear: cognitive function intact. Assessment: * Assessment: 1. I mitra deficiency anemia, unspecified iron deficiency - D50.9 (Primary) N otes :Her hematocrit and mean cell volume and ferritin are all in the normal range. Her ferritin is in the normal range at 231She is no longer taking the iron supplementation. She will be followed carefully at long intervals without it. 2 . E ssential hypertension - I10 N otes :Her blood pressure is currently stable. 3 . P eripheral vascular disease - I73.9 N otes :She denies any lower extremity claudication or neurological symptoms. I did not hear a carotid bruit today. 4 . O verweight - E66.3 N otes :She has lost 3 pounds since her last visit. Her body mass index is now in the normal range. We reviewed her diet and nutrition and weight loss strategy today. 5 . D iabetes mellitus - E11.9 N otes :She reports her fasting glucose levels are under 150. I have added a hemoglobin A1c to her next set of labs. 6 . H istory of stroke - Z86.73 N otes :She suffered a TIA in 2008. She has mild carotid stenosis. She will continue on current medications. 7 . C arotid artery stenosis - I65.29 N otes :She remains asymptomatic and under the care of the vascular surgeon. 8 . H ypercalcemia - E83.52 N otes :The calcium level is now normal. 9 . H yperlipidemia type II - E78.01 N otes :Her lipids are stable and in near target range. No change in her regimen as needed. 1 0. N eutrophilic leukocytosis - D72.828 N otes :Her neutrophil count is slightly elevated. This will be followed carefully. Cause is unknown. Plan: * Treatment: 2. E ssential hypertension L AB: PROFILE, FASTING (COMPREHENSIVE METABOLIC) L AB: CBC w DIFF L AB: Ferritin 3. P eripheral vascular disease L AB: PROFILE, FASTING (COMPREHENSIVE METABOLIC) L AB: CBC w DIFF L AB: Ferritin 4. O thers Continue Ferrous Gluconate Tablet, 324 (38 Fe) MG, TAKE 1 TABLET BY MOUTH TWICE A DAY WITH WATER OR JUICE BETWEEN MEALS. * Procedure Codes: * Follow Up: 3 Months (Reason: ov review labs) * Images: * Sign off status: Completed true * Provider: Rylan Dewey MD Date: Generated for Baldo bey/Dasha/Steve on: 04:05 PM EDT History and Physical Notes * HPI (History of Present Illness) Category Sub-Category Detail Notes COVID-19 Screening Questions Have you had any new onset fever, chills, cough, congestion, sore throat, shortness of breath, muscle aches?: No Examination Category Sub-Category Detail Notes General Examination GENERAL APPEARANCE: pleasant , well nourished, well developed, in no acute distress, calm and relaxed: elderly woman HEAD: atraumatic, normocep halic EYES: [...] normal RECTAL EXAM: not examined PSYCH: alert, oriented: tho ught process logical, goal directed: good eye contact: speech clear: cognitive function intact ORAL CAVITY: normal, unremarkable
--- OUTSIDE RECORDS SUMMARY | 2024-11-20 16:05 | XMS_ITS | Continuity of Care Document ---
Author Organization [facility] [address] [place] [address] Phone [phone] Care Team Providers Care Gas Usage Meter Clerk Name Role Phone Aristeo Gan M.D. Care Team Information Receiv er [phone] Problems Active Problems Provider Date Hypercholesterolemia Deniz Chavez M.D. Onset : 01/04/2022 History of cerebrovascular accident Deniz burris M.D. Onset: 01/04/2022 Primary hyperparathyroidism Kp Rodriguez Onset: 01/04/2022 Essential hypertension Deniz Chavez M.D. Ons et: 01/04/2022 Social History Type Date Description Comments Sex Female Sex Unknown Tobacco Use Start: Unknown Never Smoked Cigarettes ETOH Use Denies alcohol use Allergies and adverse reactions Description No Known Drug Allergies Medications Active Medications SIG Qnty Indications Ordering Provider Date Clopidogrel Sodbzdgpa59hx Tablets Take 1 Tablet By Mouth Every Day Aristeo Gan M.D. Losartan Ykwnbftba920kt Tablets Take 1 Tablet By Mouth Every Day Aristeo Gan M.D. Atorvastatin Loabqwt74mk Tablets Take 1 Tablet By Mouth Every Day Aristeo Gan M.D. Amlodipine Fzhwwptt8ez Tablets Take 1 Tablet By Mouth Every Day Aristeo Gan M.D. Metformin [id number] Tablets Take half Tablet By Mouth Twice [...] Referral Status Appt Deniz Mendez M.D. Created [address] [place] [address] [address] [place] [address] [phone]
--- OUTSIDE RECORDS SUMMARY | 2024-11-20 16:05 | XMS_ITS | Patient Health Record ---
Author Organization Azar Dewey III, MD Address [address] [place] [address] Care Team Providers Care Tyre Builder Name Role Phone Benedicto ALVAREZ, Luz Maria Primary Care Provider Azar Jacobson III [phone] Aristeo Gan MD Unavailable Unavailable Dr. Azar [...] eveni ng Orally Once a day Active Losartan Potassium 25 MG 1 tablet Orally Once a day Active metFORMIN HCl 1000 MG 1 tablet with meal s Orally Twice a day Active Plavix 75 MG 1 tablet Orally Once a day Active Ferrous Gluconate 324 (38 Fe) MG TAKE 1 TABLET BY MOUTH TWICE A DAY WITH WATER OR JUICE BETWEEN MEALS Active Immunizations Vaccine Route Administration Date Status Comme nts Influenza Unknown 11/12/2013 Administered Flu-IIv3 Unknown 10/04/2018 Administered Influenza-iiv4 p-free high dose Unknown 11/10/2021 Admi nistered Fluzone High-Dose (HD-IIV3) Unknown 10/30/2014 Administ ered COVID PFIZER Unknown 04/04/2020 Administered Fluzone High-Dose (HD-IIV3) Unknown 10/08/2016 Administ ered COVID PFIZER Unknown 11/12/2020 Administered PCV20 Unknown 10/04/2022 Administered Influenza-iiv4 p-free high dose Unknown 10/03/2020 Admi nistered Fluzone High-Dose (HD-IIV3) Unknown 10/13/2017 Administ ered COVID PFIZER Unknown 03/14/2020 Administered COVID Pfizer Bivalent Unknown 11/10/2021 Administered PPV 23 Unknown 04/16/2015 Administered SHINGRIX Unknown 10/13/2018 Administered SHINGRIX Unknown 2018 Administered Tdap Unknown 08/01/2014 Administered Fluzone High-Dose (HD-IIV3) Unknown 10/22/2015 Administ ered Social History Tobacco Use: Social History Observation [...] Problem Status W/U Status Risk Notes Problem 561529902 Overweight (E66.3) Active confirmed She has lost 3 pounds since her last visit. Her body mass index is now in the normal range. We reviewed her diet and nutrition and weight loss strategy today. Problem 44609595 Diabetes mellitus (E11.9) Active confirmed She reports her fasting glucose levels are under 150. I have added a hemoglobin A1c to her next set of labs. Problem 11268556 Hypercalcemia (E83.52) Active confirmed The calcium level is now normal. Problem 05687620 Iron deficiency anemia, unspecified iron deficiency (D50.9) Active confirmed Her hematocrit and mean cell volume and ferritin are all in the normal range. Her ferritin is in the normal range at 231She is no longer taking the iron supplementati on. She will be followed carefully at long intervals without it. Problem 41287016 Essential hypertension (I10) Active confirmed Her blood pressure is currently stable. Problem 038602429 Peripheral vascular disease (I73.9) Active confirmed She denies any lower extremity claudication or neurological symptoms. I did not hear a carotid bruit today. Problem 462331143 History of stroke (Z86.73) Active confirmed She suffered a TIA in 2008. She has mild carotid stenosis. She will continue on current medications. Problem 53898351 Carotid artery stenosis (I65.29) Active confirmed She remains asymptomatic and under the care of the vascular surgeon. Problem Pure hypercholesterolemia (010148489) Hyperlipidemia type II (E78.01) Active confirmed Her lipids are stable and in near target range. No change in her regimen as needed. Problem 434315496 Neutrophilic leukocytosis (D72.828) Active confirmed Her neutrophil count is slightly elevated. This will be followed carefully. Cause is unknown. Vital Signs Heart Rate 77 /min 11/15/2024 Temperature 97.2 degrees Fahrenheit 11/15/2024 Blood pressure diastolic 76 mm Hg 11/15/2024 Height 62 in 11/15/2024 Blood pressure systolic 139 mm Hg 11/15/2024 Weight 135 lbs 11/15/2024 BMI 24.69 kg/m2 11/15/2024 Encounters Encounter Location Date Provider Diagnosis Azar Dewey III, MD [address] [place] [address] [address] [place] [address] 05/16/2024 Azar Dewey Iron deficiency anem ia, unspecified iron deficiency D50.9 ; Overweight E66.3 ; Essential hypertension I10 ; Diabetes mellitus E11.9 ; History of stroke Z86.73 ; Carotid artery stenosis I65.29 ; Hypercalcemia E83.52 and Hyperlipidemia type II E78.01 Azar Dewey III, MD [address] [place] [address] [address] [place] [address] 11/15/2024 Azar Dewey Iron deficiency anem ia, [...] Treat ment Notes Treatment Clinical Notes 05/16/2024 Overweight (ICD-10 - E66.3) She has lost 3 pounds since her last visit. Her body mass index is now in the normal range. We reviewed her diet and nutrition and weight loss strategy today. 05/16/2024 Iron deficiency anemia, unspecified iron deficiency (ICD-10 - D50.9) Her hematocrit and mean cell volume and ferritin are all in the normal range. Her ferritin is in the normal range at 231She is no longer taking the iron supplementation. She will be followed carefully at long intervals without it. 11/15/2024 Iron deficiency anemia, unspecified iron deficiency (ICD-10 - D50.9) Her hematocrit and mean cell volume and ferritin are all in the normal range. Her ferritin is in the normal range at 231She is no longer taking the iron supplementation. She will be followed carefully at long intervals without it. 11/15/2024 Essential hypertension (ICD-10 - I10) Her blood pressure is currently stable. 05/16/2024 Essential hypertension (ICD-10 - I10) Her blood pressure today is 130/70. No change in her regimen was made. 11/15/2024 Peripheral vascular disease (ICD-10 - I73.9) She denies any lower extremity claudication or neurological symptoms. I did not hear a carotid bruit today. 05/16/2024 Diabetes mellitus (ICD-10 - E11.9) She reports her fasting glucose levels are under 150. I have added a hemoglobin A1c to her next set of labs. 11/15/2024 Overweight (ICD-10 - E66.3) She has lost 3 pounds since her last visit. Her body mass index is now in the normal range. We reviewed her diet and nutrition and weight loss strategy today. 05/16/2024 History of stroke (ICD-10 - Z86.73) She suffered a TIA in 2008. She has mild carotid stenosis. She will continue on current medications. 11/15/2024 Diabetes mellitus (ICD-10 - E11.9) She reports her fasting glucose levels are under 150. I have added a hemoglobin A1c to her next set of labs. 05/16/2024 Carotid artery stenosis (ICD-10 - I65.29) She remains asymptomatic and under the care of the vascular surgeon. 11/15/2024 History of stroke (ICD-10 - Z86.73) She suffered a TIA in 2008. She has mild carotid stenosis. She will continue on current medications. 05/16/2024 Hypercalcemia (ICD-1 0 - E83.52) The calcium level is now normal. 11/15/2024 Carotid artery stenosis (ICD-10 - I65.29) She remains asymptomatic and under the care of the vascular surgeon. 05/16/2024 Hyperlipidemia type II (ICD-10 - E78.01) Her lipids are stable and in near target range. No change in her regimen as needed. 11/15/2024 Hypercalcemia (ICD-1 0 - E83.52) The calcium level is now normal. 11/15/2024 Hyperlipidemia type II (ICD-10 - E78.01) Her lipids are stable and in near target range. No change in her regimen as needed. 11/15/2024 Neutrophilic leukocytosis (ICD-10 - D72.828) Her neutrophil count is slightly elevated. This will be followed carefully. Cause is unknown. Plan Of Treatment Pending Test Test Name Order Date PROFILE, FASTING (COMPREHENSIVE METABOLI C) 01/14/2023 PROFILE, FASTING (COMPREHENSIVE METABOLI C) 07/15/2023 PROFILE, FASTING (COMPREHENSIVE METABOLI C) 11/15/2024 PROFILE, RANDOM (COMPREHENSIVE METABOLIC ) 12/21/2018 PROFILE, RANDOM (COMPREHENSIVE METABOLIC ) 05/16/2024 PROFILE, RANDOM (COMPREHENSIVE METABOLIC ) 06/16/2018 PROFILE, RANDOM (COMPREHENSIVE METABOLIC ) 12/27/2019 PROFILE, RANDOM (COMPREHENSIVE METABOLIC ) 11/16/2023 PROFILE, RANDOM (COMPREHENSIVE METABOLIC ) 07/09/2021 PROFILE, RANDOM (COMPREHENSIVE METABOLIC ) 07/09/2022 PROFILE, RANDOM (COMPREHENSIVE METABOLIC ) 07/23/2019 PROFILE, RANDOM (COMPREHENSIVE METABOLIC ) 03/23/2019 PROFILE, RANDOM (COMPREHENSIVE METABOLIC ) 12/26/2020 PROFILE, RANDOM (COMPREHENSIVE METABOLIC ) 01/08/2022 HEMOGLOBIN A1C (GLYCOHEMOGLOBIN) 019 CALCIUM 07/23/2019 CALCIUM 03/23/2019 FERRITIN 12/26/2020 FERRITIN 03/23/2019 FERRITIN 12/21/2018 FERRITIN 12/27/2019 FERRITIN 06/16/2018 FERRITIN 07/09/2022 FERRITIN 07/23/2019 CBC w DIFF 07/23/2019 CBC w DIFF 01/08/2022 CBC w DIFF 12/26/2020 CBC w DIFF 05/16/2024 CBC w DIFF 03/23/2019 CBC w DIFF 12/21/2018 CBC w DIFF 07/09/2021 CBC w DIFF 12/27/2019 CBC w DIFF 11/15/2024 CBC w DIFF 06/16/2018 CBC w DIFF 07/09/2022 RETICULOCYTE COUNT,CORRECTED 12/21/2018 CBC WITH AUTO DIFF 01/14/2023 CBC WITH AUTO DIFF 07/15/2023 CBC WITH AUTO DIFF 11/16/2023 RETIC 11/16/2023 Ferritin 11/15/2024 Ferritin 01/08/2022 Ferritin 01/14/2023 Ferritin 05/16/2024 Ferritin 07/15/2023 Ferritin 07/09/2021 Ferritin 11/16/2023 Lipid Panel 01/14/2023 Lipid Panel 07/15/2023 Microalbumin, Random 01/14/2023 Microalbumin, Random 07/15/2023 Hemoglobin A1c 01/14/2023 Hemoglobin A1c 07/15/2023 Next Appt Details Provider Name:Azar Mitzy Dewey , 02/14/2025 09:15:00 AM, [address], [address], [place], [address], Insurance Providers Payer Name Payer Address Payer Phone Subscriber Number Group Number Insured Name Patient Relationship to Insured Coverage Start Date Coverage End Date [facility] [address] [place] [phone] [id number] Theodora Mccormack Self - patient is the insured MEDICARE NGS [address] [place] [phone] [id number] Theodora Mccormack Self - patient is the insured Medical (General) History Medical History History ICD Code hypertension diabetes mellitus stroke 2009 anemia hyperlipidemia bilateral carotid stenosis postmenopausal Surgical History Surgery Date(Month/Year) No history Cataract surgery 08/2020 Hospitalization History Reason Date(Month/Year) No history
--- OUTSIDE RECORDS SUMMARY | 2024-11-20 16:06 | XMS_ITS | Patient Health Record ---
Author Organization [facility] Address [address] [place] [address] Care Team Providers Care Draw Tender Name Role Phone Kathleen (RETIRED) Edwin ALVAREZ Primary Care Provide r Alexsander Chin Jr Unavailable Reason For Referral No Information Medications Medication SIG (Take, Route, Frequency, Duration) Notes Start Date End Date Status Multi Vitamin/Minerals 02/08/20242024 Active Losartan Potassium 25mg Active Aspirin Childrens 81mg Active Ferrous Sulfate 325mg Active Plavix 75mg Active Simvastatin 40mg Act zen metFORMIN HCl 100mg Active Problems Problem Type SNOMED Code ICD Code Onset Dates Problem Status W/U Status Risk Notes Problem Iron deficiency anemia (97073920) Unspecified iron deficiency anemia (280.9) Active confirmed Plan Of Treatment Future Test Test Name Order Date UPPER GI ENDOSCOPY 04/15/2011 COLONOSCOPY 04/15/2011 Insurance Providers Payer Name Payer Address Payer Phone Subscriber Number Group Number Insured Name Patient Relationship to Insured Coverage Start Date Coverage End Date [facility] [address] [place] [address] [id number] CÉSAR MARTINEZ Self - patient is the insured MEDICARE OF [place] [address] [place] [address] [phone] [id number] CÉSAR MARTINEZ Self - patient is the insured Medical (General) History Medical History History ICD Code hypertension elevated blood sugar, diabetes TIA elevated cholesterol coronary disease, history of [place] Denies Lung disease,renal disease Surgical History Surgery Date(Month/Year) wrist surgery
== END 2024-11-20 13:19 | disposition home or self-care (01) ==
LOC: HO.MAMMO 13:18
PROVIDERS: PCP Internal Medicine; Visit Provider Internal Medicine
DX: Z12.31 Encounter for screening mammogram for malignant neoplasm of breast (principal)
CPT/HCPCS: 77063; 77067

== ENCOUNTER → 2024-11-20 13:30 | Outpatient (BNV) | payer MEDICARE, SELFPAY | PROVIDERS: PCP Internal Medicine; Visit Provider Radiology Body Imaging | DX: Z12.31 Encounter for screening mammogram for malignant neoplasm of breast (principal) | CPT/HCPCS: 77063; 77067 ==

== ENCOUNTER 2024-11-26 11:10 | Outpatient (AMB) | payer MEDICARE, SELFPAY ==
--- OUTSIDE RECORDS SUMMARY | 2023-07-15 06:30 | XMS_ITS ---
Author Organization Azar Dewey III, MD Address [address] [place] [address] Care Team Providers Care Android Ui Developer Name Role Phone Benedicto ALVAREZ, Luz Maria Primary Care Provider Azar Jacobson III [phone] Aristeo Gan MD Unavailable Unavailable Dr. Azar Dewey III Unavailable [phone] Allergies Allergen (clinical drug ingredient) Drug/Non Drug Allergy documented on EMR Reaction Allergy Type Onset Date Status No Known Drug Allergy Unknown Drug Allergy Active REASON FOR VISIT Iron deficiency, Diabetes, Peripheral vascular disease, Hypertension, Hypercalcemia Medications Medication SIG (Take, Route, Frequency, Duration) Notes Start Date End Date Status Aspirin 81 MG 1 tablet Orally Once a day Active Plavix 75 MG 1 tablet Orally Once a day Active Losartan Potassium 25 MG 1 tablet Orally Once a day Active Simvastatin 40 MG 1 tablet every eveni ng Orally Once a day Active metFORMIN HCl 1000 MG 1 tablet with meal s Orally Twice a day Active Ferrous Gluconate 324 (38 Fe) MG TAKE 1 TABLET BY MOUTH TWICE A DAY WITH WATER OR JUICE BETWEEN MEALS Active Social History Tobacco Use: Social History Observation Description Date Details (start date - stop date) Never Smoker NA - NA Tobacco Use/Smoking Question Answer Notes Patient is a nonsmoker Additional Findings: Tobacco Non-User Aggressive non-smoker Vital Signs Temperature 97.0 degrees Fahrenheit 07/15/19 24 Blood pressure systolic 148 mm Hg 07/15/19 24 Blood pressure diastolic 79 mm Hg 024 Heart Rate 89 /min 07/15/2023 Height 62 in 07/15/2023 Weight 140 lbs 07/15/2023 BMI 25.6 kg/m2 07/15/2023 Encounters Encounter Location Date Provider Diagnosis Azar Dewey III, MD [address] [place] [address] 07/15/2023 Azar Dewey Iron deficiency anem ia, unspecified iron deficiency D50.9 ; Overweight E66.3 ; Diabetes mellitus E11.9 and Hyperlipidemia type II E78.01 Assessments Encounter Date Diagnosis (ICD Code) Assessment Notes Treat ment Notes Treatment Clinical Notes 07/15/2023 Iron deficiency anemia, unspecified iron deficiency (ICD-10 - D50.9) Her hematocrit and mean cell volume and ferritin are all in the normal range. She is no longer taking the iron supplementation. She will be followed carefully at long intervals without it. 07/15/2023 Overweight (ICD-10 - E66.3) She is very slightly overweight. We discussed diet and nutrition. We made a plan to lose weight at a rate of one half of a pound per week. 07/15/2023 Diabetes mellitus (ICD-10 - E11.9) Her hemoglobin A1c is 5.8. Her fasting glucose was 97. No change in her regimen as needed. 07/15/2023 Hyperlipidemia type II (ICD-10 - E78.01) Her lipids are stable and in near target range. No change in her regimen as needed. Plan Of Treatment Medication Medication Name Sig Start Date Stop Date Notes Aspirin 81 MG 1 tablet Orally Once a day Plavix 75 MG 1 tablet Orally Once a day Losartan Potassium 25 MG 1 tablet Orally Once a day Simvastatin 40 MG 1 tablet every eveni ng Orally Once a day metFORMIN HCl 1000 MG 1 tablet with meal s Orally Twice a day Ferrous Gluconate 324 (38 Fe ) MG TAKE 1 TABLET BY MOUTH TWICE A DAY WITH WATER OR JUICE BETWEEN MEALS Pending Test Test Name Order Date PROFILE, FASTING (COMPREHENSIVE METABOLI C) 07/15/2023 CBC WITH AUTO DIFF 07/15/2023 Ferritin 07/15/2023 Lipid Panel 07/15/2023 Microalbumin, Random 07/15/2023 Hemoglobin A1c 07/15/2023 Next Appt Details Follow Up: 4 Months, Reason: OV Provider Name:Azar Dewey , 02/14/2025 09:15:00 AM, [address] [place] [address] ORTIZ MOYER, MAINE LOPEZ, [phone], Progress Notes * Shayne MARTINEZOB: 2 (82 yo F)Acc No.[id number]:07/15/2023 Progress Notes Patient: Theodora Guthrie Provider: Rylan Dewey MD :1940 A ge:82 Y S ex:Female Date:07/15/2023 Address:[address] [place], [place] [id number] Pcp:Aristeo Gan MD Subjective: * Chief Complaints: * I mitra deficiencyDiabetesPeripheral vascular diseaseHypertensionHypercalcemia * HPI: C OVID-19 Screening: She returns for evaluattion of her iron deficiency. Says she is not taking her iron supplements. She feels healthy and well. Her blood work was reviewed with her in detail. Blood work done July 06, 2023 showed white count 11,400 differential normal hematocrit 38 mean cell volume 94 platelets 227 ferritin 27 glucose 97 BUN 20 creatinine 1.04 A1c 5.8 total cholesterol 127 triglycerides 1:15 HDL 47 LDL 59. Questions H ave you experienced fever, chills, cough, sore throat, shortness of breath, difficulty breathing, muscle aches, loss of taste or smell? N o H ave you been exposed to the virus within the last 10 days? N o H ave you travelled internationally in the last 10 days? N o H ave you been exposed to COVID-19 in the past? N o * ROS: G eneral/Constitutional: pain o nly normal aches and pains. C hills d enies.?Fatigue a dmits. F ever d enies. E NT: Decreased hearing i n both ears. R espiratory: Cough d enies. C ardiovascular: Chest pain with exertion d enies. D yspnea on exertion?denies. S hortness of breath d enies. G astrointestinal: Constipation o ccasional. D ecreased appetite d enies. D iarrhea d enies. H eartburn d enies. N ausea d enies. R ectal bleeding d enies. V omiting d enies. H ematology: bruising d enies. p etechiae d enies. S wollen glands n one have been noted. G enitourinary: Frequent urination a t night. M usculoskeletal: Muscle aches d enies. P ainful joints d enies. S ciatica d enies. W eakness d enies. S kin: Itching d enies. R eh d enies. S kin lesion(s)?denies. N eurologic: Difficulty speaking d enies. D izziness d enies.?Headache d enies. L ow back pain d enies. P sychiatric: Depressed mood d enies. * Medical History: * Surgical History: C ataract surgery 08/2020 * Hospitalization/Major Diagno stic Procedure: D enies Past Hospitalization * Family History: F ather: 72 yrs, stomach cancer, diagnosed with Cancer. M other: 63 yrs, diabetes mellitus, heart attack, diagnosed with DM. 1 brother(s) , 1 sister(s) - healthy. 2 daughter(s) - healthy. . * Social History: T obacco Use: T obacco Use/Smoking P atient is a n onsmoker A dditional Findings: Tobacco Non-User A ggressive non-smoker S he is a nonmoker. Her PCP is Edwin Wang. She is not a Latter-day. 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 She was born in [place], [place]. * Medications: T akingLosartan Potassium 25 MG Tablet 1 tablet Orally Once a dayPlavix 75 MG Tablet 1 tablet Orally Once a daymetFORMIN HCl 1000 MG Tablet 1 tablet with meals Orally Twice a daySimvastatin 40 MG Tablet 1 tablet every evening Orally Once a dayAspirin 81 MG Tablet Chewable 1 tablet Orally Once a dayFerrous Gluconate 324 (38 Fe) MG Tablet TAKE 1 TABLET BY MOUTH TWICE A DAY WITH WATER OR JUICE BETWEEN MEALS Medication List reviewed and reconciled with the patientTaking Losartan Potassium 25 MG Tablet 1 tablet Orally Once a dayTaking Plavix 75 MG Tablet 1 tablet Orally Once a dayTaking metFORMIN HCl 1000 MG Tablet 1 tablet with meals Orally Twice a dayTaking Simvastatin 40 MG Tablet 1 tablet every evening Orally Once a dayTaking Aspirin 81 MG Tablet Chewable 1 tablet Orally Once a dayTaking Ferrous Gluconate 324 (38 Fe) MG Tablet TAKE 1 TABLET BY MOUTH TWICE A DAY WITH WATER OR JUICE BETWEEN MEALS Medication List reviewed and reconciled with the patient * Allergies: N o Known Drug Allergyno[Allergies Verified] Objective: * Vitals: H t: 62, Wt:140, BMI:25.6, BP:148/79, HR:89, Temp:97.0, Wt-k.5. * Examination: G eneral Examination: GENERAL APPEARANCE: p leasant, well nourished, well developed, in no acute distress, calm and relaxed , overweight , elderly woman. HEAD: a traumatic, normocephalic. EYES: e zuri, perrla, anicteric, conjugate. EARS: n ormal. NOSE: s eptum intact. ORAL CAVITY: n ormal, unremarkable. NECK/THYROID: n o jugular venous distention, no carotid bruit, thyroid normal. LYMPH NODES: n o enlarged lymph nodes,spleen normal. SKIN: n o suspicious lesions, anicteric. HEART: n o clicks, gallops, murmurs, or rubs, regular rhythm, S1, S2 normal, no s3, or vascular bruits. LUNGS: c lear to auscultation . BREASTS: n ot examined. ABDOMEN: b owel sounds normal, no ascites, no organomegaly, no mass , overweight. RECTAL EXAM: n ot examined. MUSCULOSKELETAL: e xtremities unremarkable, no clubbing, cyanosis or edema. PERIPHERAL PULSES: n ormal. NEUROLOGIC: a lert and oriented, cranial nerves 2-12 grossly intact, deep tendon reflexes 2+ symmetrical, motor strength normal upper and lower extremities, sensory exam intact. PSYCH: a lert, oriented. Assessment: * Assessment: 1. I mitra deficiency anemia, unspecified iron deficiency - D50.9 (Primary), Her hematocrit and mean cell volume and ferritin are all in the normal range. She is no longer taking the iron supplementation. She will be followed carefully at long intervals without it. 2 . O verweight - E66.3, She is very slightly overweight. We discussed diet and nutrition. We made a plan to lose weight at a rate of one half of a pound per week. 3 . D iabetes mellitus - E11.9, Her hemoglobin A1c is 5.8. Her fasting glucose was 97. No change in her regimen as needed. 4 . H yperlipidemia type II - E78.01, Her lipids are stable and in near target range. No change in her regimen as needed. Plan: * Treatment: 2. O verweight L AB: PROFILE, FASTING (COMPREHENSIVE METABOLIC) L AB: CBC WITH AUTO DIFF L AB: Ferritin L AB: Lipid Panel L AB: Microalbumin, Random L AB: Hemoglobin A1c 3. D iabetes mellitus L AB: PROFILE, FASTING (COMPREHENSIVE METABOLIC) L AB: CBC WITH AUTO DIFF L AB: Ferritin L AB: Lipid Panel L AB: Microalbumin, Random L AB: Hemoglobin A1c 4. H yperlipidemia type II L AB: PROFILE, FASTING (COMPREHENSIVE METABOLIC) L AB: CBC WITH AUTO DIFF L AB: Ferritin L AB: Lipid Panel L AB: Microalbumin, Random L AB: Hemoglobin A1c 5. O thers Continue Ferrous Gluconate Tablet, 324 (38 Fe) MG, TAKE 1 TABLET BY MOUTH TWICE A DAY WITH WATER OR JUICE BETWEEN MEALS. * Procedure Codes: * Preventive Medicine: Counseling: C are goal follow-up plan: Counseling for abnormal BMI given Y es Above Normal BMI Follow-up D ietary management education, guidance, and counseling * Follow Up: 4 Months (Reason: OV) * Images: * Sign off status: Completed true * Provider: Rylan Dewey MD Date: 0 07/15/2023 Generated for Baldo bey/Dasha/Caitting on: 01:40 PM EDT History and Physical Notes * HPI (History of Present Illness) Category Sub-Category Detail Notes COVID-19 Screening Questions Have you had any new onset fever, chills, cough, congestion, sore throat, shortness of breath, muscle aches?: No Have you been exposed to the virus withi n the last 10 days?: No Have you travelled internationally in last 10 days?: No Have you been exposed to COVID-19 in the past?: No Examination Category Sub-Category Detail Notes General Examination GENERAL APPEARANCE: pleasant , well nourished, well developed, in no acute distress, calm and relaxed , overweight , elderly woman HEAD: atraumatic, normocep halic EYES: eomi, perrla, anicte ranjit, conjugate EARS: normal NOSE: septum intact NECK/THYROID: no jugular venous di stention, no carotid bruit, thyroid normal HEART: no clicks, gallops, murmurs, or rubs, regular rhythm, S1, S2 normal, no s3, or vascular bruits LUNGS: clear to auscultatio n ABDOMEN: bowel sounds normal, no ascites, no organomegaly, no mass , overweight NEUROLOGIC: alert and oriented, cranial nerves 2-12 grossly intact, deep tendon reflexes 2+ symmetrical, motor strength normal upper and lower extremities, sensory exam intact SKIN: no suspicious lesion s, anicteric PERIPHERAL PULSES: normal BREASTS: not examined MUSCULOSKELETAL: extremities unremark able, no clubbing, cyanosis or edema LYMPH NODES: no enlarged lymph no jayden,spleen normal RECTAL EXAM: not examined PSYCH: alert, oriented ORAL CAVITY: normal, unremarkable
--- OUTSIDE RECORDS SUMMARY | 2023-11-14 13:15 | XMS_ITS ---
Author Organization Azar Dewey III, MD Address [address] [place] [address] [address] [facility] [place] [address] Care Team Providers Care Cycling Instructor Name Role Phone Benedicto ALVAREZ, Luz Maria Primary Care Provider Azar Jacobson III [phone] Elvia ALVAREZ, Aristeo Unavailable Unavailable Dr. Azar Dewey III REASON FOR VISIT Followup Encounters Encounter Location Date Provider Diagnosis Azar Dewey III, MD [address] [place] [address] [place] [address] 11/14/2023 Azar Dewey Plan Of Treatment Next Appt Details Provider Name:Azar Dewey , 02/14/2025 09:15:00 AM, [address] [place] [address] [place], [address], Progress Notes * Maggie MARTINEZGloryOB: 2 (83 yo F)Acc No.[id number]:11/14/2023 Progress Notes Patient: Theodora BEVERLY Provider: Rylan Dewey MD :1940 A ge:82 Y S ex:Female Date:11/14/2023 Address:[address] [place] [place], [place]-[id number] Pcp:Luz Maria Diane MD Subjective: * Chief Complaints: * 1 . Followup. * Medical History: Objective: * Vitals: Assessment: Plan: * Treatment: * Images: * The named appointment provid er may or may not be the originator of this progress note, and it is not deemed complete until electronically signed by the appointment provider. Sign off status: Pending * Provider: Rylan Dewey MD Date: Generated for Baldo bey/Dasha/Steve on: 01:40 PM EDT
--- OUTSIDE RECORDS SUMMARY | 2023-11-16 06:45 | XMS_ITS ---
Author Organization Azar Dewey III, MD Address [address] [place] [address] Care Team Providers Care Sql Database Developer Name Role Phone Benedicto ALVAREZ, Luz Maria Primary Care Provider Azar Jacobson III [phone] Aristeo Gan MD Unavailable Unavailable Dr. Azar Dewey III Unavailable [phone] Allergies Allergen (clinical drug ingredient) Drug/Non Drug Allergy documented on EMR Reaction Allergy Type Onset Date Status No Known Drug Allergy Unknown Drug Allergy Active REASON FOR VISIT Iron deficiency, Hyperlipidemia, Hypertension, Peripheral vascular disease, Carotid stenosis, Diabetes, History of stroke Medications Medication SIG (Take, Route, Frequency, Duration) Notes Start Date End Date Status Simvastatin 40 MG 1 tablet every eveni ng Orally Once a day Active metFORMIN HCl 1000 MG 1 tablet with meal s Orally Twice a day Active Plavix 75 MG 1 tablet Orally Once a day Active Losartan Potassium 25 MG 1 tablet Orally Once a day Active Ferrous Gluconate 324 (38 Fe) MG TAKE 1 TABLET BY MOUTH TWICE A DAY WITH WATER OR JUICE BETWEEN MEALS Active Aspirin 81 MG 1 tablet Orally Once a day Active Social History Tobacco Use: Social History Observation Description Date Details (start date - stop date) Never Smoker NA - NA Tobacco Use/Smoking Question Answer Notes Patient is a nonsmoker Additional Findings: Tobacco Non-User Aggressive non-smoker Vital Signs Temperature 97.3 degrees Fahrenheit 11/16/19 24 Blood pressure systolic 136 mm Hg 11/16/19 24 Blood pressure diastolic 74 mm Hg 024 Heart Rate 77 /min 11/16/2023 Height 62 in 11/16/2023 Weight 139 lbs 11/16/2023 BMI 25.42 kg/m2 11/16/2023 Encounters Encounter Location Date Provider Diagnosis Azar Dewey III, MD [address] [place] [address] [address] [address] 11/16/2023 Azar Dewey Iron deficiency anemia, unspecified iron deficiency D50.9 ; Overweight E66.3 ; Essential hypertension I10 ; Diabetes mellitus E11.9 and History of stroke Z86.73 Assessments Encounter Date Diagnosis (ICD Code) Assessment Notes Treatment Notes Treatment Clinical Notes 11/16/2023 Iron deficiency anemia, unspecified iron deficiency (ICD-10 - D50.9) Her hematocrit and mean cell volume and ferritin are all in the normal range. Her ferritin is in the normal range at 27. She is no longer taking the iron supplementation. She will be followed carefully at long intervals without it. 11/16/2023 Overweight (ICD-10 - E66.3) She is very slightly overweight. She will stabilize her weight at this level and pursue a healthy Mediterranean diet limiting calories. 11/16/2023 Essential hypertension (ICD-10 - I10) Her blood pressure today is 130/70. No change in her regimen was made. 11/16/2023 Diabetes mellitus (ICD-10 - E11.9) Her hemoglobin A1c is 5.9. Her fasting glucose was 135. No change in her regimen as needed. 11/16/2023 History of stroke (ICD-10 - Z86.73) She suffered a TIA in 2008. She has mild carotid stenosis. She will continue on current medications. Plan Of Treatment Medication Medication Name Sig Start Date Stop Date Notes Simvastatin 40 MG 1 tablet every eveni ng Orally Once a day metFORMIN HCl 1000 MG 1 tablet with meal s Orally Twice a day Plavix 75 MG 1 tablet Orally Once a day Losartan Potassium 25 MG 1 tablet Orally Once a day Ferrous Gluconate 324 (38 Fe ) MG TAKE 1 TABLET BY MOUTH TWICE A DAY WITH WATER OR JUICE BETWEEN MEALS Aspirin 81 MG 1 tablet Orally Once a day Pending Test Test Name Order Date PROFILE, RANDOM (COMPREHENSIVE METABOLIC ) 11/16/2023 CBC WITH AUTO DIFF 11/16/2023 RETIC 11/16/2023 Ferritin 11/16/2023 Next Appt Details Follow Up: 6 Months,, Reason : ov Provider Name:Azar Dewey , 02/14/2025 09:15:00 AM, [address] [place] [address] [address], [place], [address], Progress Notes * Shayne MARTINEZOB: 2 (82 yo F)Acc No.[id number]:11/16/2023 Progress Notes Patient: Theodora BEVERLY Provider: Rylan Dewey MD :1940 A ge:82 Y S ex:Female Date:11/16/2023 Address:[address] [place], [place] [id number] Pcp:Aristeo Gan MD Subjective: * Chief Complaints: * I mitra deficiencyHyperlipidemiaHypertensionPeripheral vascular diseaseCarotid stenosisDiabetesHistory of stroke * HPI: C OVID-19 Screening: Questions H ave you experienced fever, chills, cough, sore throat, shortness of breath, difficulty breathing, muscle aches, loss of taste or smell? N o H ave you been exposed to the virus within the last 10 days? N o H ave you travelled internationally in the last 10 days? N o H ave you been exposed to COVID-19 in the past? Y es * : The patient, an 82-year-old female, visited the doctor for follow-up hematological issues.. She had previously seen Dr. Bejarano and her primary care doctor, who noted mild abnormalities in her kidney function, which is expected for her age. The patient is currently taking iron, Plavix, metformin, simvastatin, and aspirin. She reports that her blood sugars seem to be okay. The doctor checked her blood pressure, which was around 136/74, a normal range for her age. The patient also mentioned that she has been doing yard work and taking her time with it. She has a family history of severe diabetes. Blood work on October 25, 2023 showed white count 11.9 hematocrit 35 mean cell volume 96 platelets 223 glucose 96 BUN 17 creatinine 1.13 calcium 10.5 total cholesterol 135 triglycerides 146 HDL 44 LDL 66 hemoglobin A1c 5.9 ferritin 27. * ROS: G eneral/Constitutional: pain o nly normal aches and pains. C hills d enies.?Fatigue a dmits. F ever d enies. E NT: Decreased hearing m ild. R espiratory: Cough d enies. C ardiovascular: [...] History: * Surgical History: C ataract surgery 08/2020No history * Hospitalization/Major Diagno stic Procedure: N o history * Family History: F ather: 72 yrs, stomach cancer, diagnosed with Cancer. M other: 63 yrs, diabetes mellitus, heart attack, diagnosed with DM. 1 brother(s) , 1 sister(s) - healthy. 2 daughter(s) - healthy. . Severe diabetes. * Social History: T obacco Use: T obacco Use/Smoking P atient is a n onsmoker A dditional Findings: Tobacco Non-User A ggressive non-smoker S he is a nonmoker. Her PCP is Edwin Wang. She is not a Faith. 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 She was born in [place], [place]. * Medications: T akingLosartan Potassium 25 MG Tablet 1 tablet Orally Once a day Plavix 75 MG Tablet 1 tablet Orally Once a day metFORMIN HCl 1000 MG Tablet 1 tablet with meals Orally Twice a day Simvastatin 40 MG Tablet 1 tablet every evening Orally Once a day Aspirin 81 MG Tablet Chewable 1 tablet Orally Once a day Ferrous Gluconate 324 (38 Fe) MG Tablet TAKE 1 TABLET BY MOUTH TWICE A DAY WITH WATER OR JUICE BETWEEN MEALS Medication List reviewed and reconciled with the patientTaking Losartan Potassium 25 MG Tablet 1 tablet Orally Once a day Taking Plavix 75 MG Tablet 1 tablet Orally Once a day Taking metFORMIN HCl 1000 MG Tablet 1 tablet with meals Orally Twice a day Taking Simvastatin 40 MG Tablet 1 tablet every evening Orally Once a day Taking Aspirin 81 MG Tablet Chewable 1 tablet Orally Once a day Taking Ferrous Gluconate 324 (38 Fe) MG Tablet TAKE 1 TABLET BY MOUTH TWICE A DAY WITH WATER OR JUICE BETWEEN MEALS Medication List reviewed and reconciled with the patient * Allergies: N o Known Drug Allergyno[Allergies Verified] Objective: * Vitals: H t: 62, Wt:139, BMI:25.42, BP:136/74, HR:77, Temp:97.3, Wt-k.05. * Examination: G eneral Examination: GENERAL APPEARANCE: p leasant, well nourished, well developed, in no acute distress, calm and relaxed, overweight, elderly woman. HEAD: a traumatic, normocephalic. EYES: [...] LUNGS: c lear to auscultation . BREASTS: N ot examined. ABDOMEN: b owel sounds normal, no ascites, no organomegaly, no mass. RECTAL EXAM: n ot examined. MUSCULOSKELETAL: e xtremities unremarkable, no clubbing, cyanosis or edema. PERIPHERAL PULSES: B oth carotids are palpable without bruits. NEUROLOGIC: a lert and oriented, cranial nerves 2-12 grossly intact, deep tendon reflexes 2+ symmetrical, motor strength normal upper and lower extremities, sensory exam intact. PSYCH: a lert, oriented. Assessment: * Assessment: 1. I mitra deficiency anemia, unspecified iron deficiency - D50.9 (Primary) N otes :Her hematocrit and mean cell volume and ferritin are all in the normal range. Her ferritin is in the normal range at 27. She is no longer taking the iron supplementation. She will be followed carefully at long intervals without it. 2 . O verweight - E66.3 N otes :She is very slightly overweight. She will stabilize her weight at this level and pursue a healthy Mediterranean diet limiting calories. 3 . E ssential hypertension - I10 N otes :Her blood pressure today is 130/70. No change in her regimen was made. 4 . D iabetes mellitus - E11.9 N otes :Her hemoglobin A1c is 5.9. Her fasting glucose was 135. No change in her regimen as needed. 5 . H istory of stroke - Z86.73 N otes :She suffered a TIA in 2008. She has mild carotid stenosis. She will continue on current medications. Plan: * Treatment: 2. O verweight L AB: PROFILE, RANDOM (COMPREHENSIVE METABOLIC) L AB: CBC WITH AUTO DIFF L AB: RETIC L AB: Ferritin 3. O thers Continue Ferrous Gluconate Tablet, 324 (38 Fe) MG, TAKE 1 TABLET BY MOUTH TWICE A DAY WITH WATER OR JUICE BETWEEN MEALS. * Procedure Codes: * Preventive Medicine: Counseling: C are goal follow-up plan: Counseling for abnormal BMI given Y es Above Normal BMI Follow-up D ietary management education, guidance, and counseling, Dietary needs education DM Care Plan: P atient Lifestyle Goals P atient wants to be able to manage diabetes without too much effort. T reatment Goals D iabetic Diet to support management, Blood Sugars less than < 115, HbA1C < 7.0. B arriers n o barriers. S elf-Managment Goals W ork on weight loss, with a goal of losing 1 lb per week, Stop drinking juice and/or soda, replace with more water. * Follow Up: 6 Months, (Reason: ov) * Images: * Sign off status: Completed true * Provider: Rylan Dewey MD Date: Generated for Baldo bey/Dasha/Caitting on: 01:39 PM EDT History and Physical Notes * HPI (History of Present Illness) Category Sub-Category Detail Notes COVID-19 Screening Questions Have you had any new onset fever, chills, cough, congestion, sore throat, shortness of breath, muscle aches?: No Have you been exposed to the virus withi n the last 10 days?: No Have you travelled internationally in [facility] last 10 days?: No Have you been exposed to COVID-19 in the past?: Yes Examination Category Sub-Category Detail Notes General Examination GENERAL APPEARANCE: pleasant , well nourished, well developed, in no acute distress, calm and relaxed, overweight, elderly woman HEAD: atraumatic, normocep halic EYES: eomi, perrla, anicte ranjit, conjugate EARS: normal NOSE: septum intact NECK/THYROID: no jugular venous di stention, no carotid bruit, thyroid normal HEART: no clicks, gallops, murmurs, or rubs, regular rhythm, S1, S2 normal, no s3, or vascular bruits LUNGS: clear to auscultatio n ABDOMEN: bowel sounds normal, no ascites, no organomegaly, no mass NEUROLOGIC: alert and oriented, cranial nerves 2-12 grossly intact, deep tendon reflexes 2+ symmetrical, motor strength normal upper and lower extremities, sensory exam intact SKIN: no suspicious lesion s, anicteric PERIPHERAL PULSES: Both carotids are pa lpable without bruits BREASTS: Not examined MUSCULOSKELETAL: extremities unremark able, no clubbing, cyanosis or edema LYMPH NODES: no enlarged lymph no jayden,spleen normal RECTAL EXAM: not examined PSYCH: alert, oriented ORAL CAVITY: normal, unremarkable
--- OUTSIDE RECORDS SUMMARY | 2024-05-16 07:15 | XMS_ITS ---
Author Organization Azar Dewey III, MD Address [address] [place] [address] Care Team Providers Care Rn Clinical Appeals Name Role Phone Benedicto ALVAREZ, Luz Maria Primary Care Provider Azar Jacobson III [phone] Aristeo Gan MD Unavailable Unavailable Dr. Azar Dewey III Unavailable Allergies Allergen (clinical drug ingredient) Drug/Non Drug Allergy documented on EMR Reaction Allergy Type Onset Date Status No Known Drug Allergy Unknown Drug Allergy Active REASON FOR VISIT Iron deficiency anemia, Hypertension, Diabetes, Peripheral vascular disease, Hypercalcemia Medications Medication SIG (Take, Route, Frequency, Duration) Notes Start Date End Date Status metFORMIN HCl 1000 MG 1 tablet with meal s Orally Twice a day Active Simvastatin 40 MG 1 tablet every eveni ng Orally Once a day Active Plavix 75 MG 1 tablet Orally Once a day Active Aspirin 81 MG 1 tablet Orally Once a day Active Ferrous Gluconate 324 (38 Fe) MG TAKE 1 TABLET BY MOUTH TWICE A DAY WITH WATER OR JUICE BETWEEN MEALS Active Losartan Potassium 25 MG 1 tablet Orally Once a day Active Social History Tobacco Use: Social History Observation Description Date Details (start date - stop date) Never Smoker NA - NA Tobacco Use/Smoking Question Answer Notes Patient is a nonsmoker Additional Findings: Tobacco Non-User Aggressive non-smoker Vital Signs Temperature 97.2 degrees Fahrenheit 05/17/19 25 Blood pressure systolic 139 mm Hg 05/17/19 25 Blood pressure diastolic 58 mm Hg 025 Heart Rate 77 /min 05/16/2024 Height 62 in 05/16/2024 Weight 136 lbs 05/16/2024 BMI 24.87 kg/m2 05/16/2024 Encounters Encounter Location Date Provider Diagnosis Azar Dewey III, MD [address] [place] [address] [address] [place], [place] [address] 05/16/2024 Azar Dewey Iron deficiency anem ia, unspecified iron deficiency D50.9 ; Overweight E66.3 ; Essential hypertension I10 ; Diabetes mellitus E11.9 ; History of stroke Z86.73 ; Carotid artery stenosis I65.29 ; Hypercalcemia E83.52 and Hyperlipidemia type II E78.01 Assessments Encounter Date Diagnosis (ICD Code) Assessment Notes Treat ment Notes Treatment Clinical Notes 05/16/2024 Iron deficiency anemia, unspecified iron deficiency (ICD-10 - D50.9) Her hematocrit and mean cell volume and ferritin are all in the normal range. Her ferritin is in the normal range at 231She is no longer taking the iron supplementation. She will be followed carefully at long intervals without it. 05/16/2024 Overweight (ICD-10 - E66.3) She has lost 3 pounds since her last visit. Her body mass index is now in the normal range. We reviewed her diet and nutrition and weight loss strategy today. 05/16/2024 Essential hypertension (ICD-10 - I10) Her blood pressure today is 130/70. No change in her regimen was made. 05/16/2024 Diabetes mellitus (ICD-10 - E11.9) She reports her fasting glucose levels are under 150. I have added a hemoglobin A1c to her next set of labs. 05/16/2024 History of stroke (ICD-10 - Z86.73) She suffered a TIA in 2008. She has mild carotid stenosis. She will continue on current medications. 05/16/2024 Carotid artery stenosis (ICD-10 - I65.29) She remains asymptomatic and under the care of the vascular surgeon. 05/16/2024 Hypercalcemia (ICD-1 0 - E83.52) The calcium level is now normal. 05/16/2024 Hyperlipidemia type II (ICD-10 - E78.01) Her lipids are stable and in near target range. No change in her regimen as needed. Plan Of Treatment Medication Medication Name Sig Start Date Stop Date Notes metFORMIN HCl 1000 MG 1 tablet with meal s Orally Twice a day Simvastatin 40 MG 1 tablet every eveni ng Orally Once a day Plavix 75 MG 1 tablet Orally Once a day Aspirin 81 MG 1 tablet Orally Once a day Ferrous Gluconate 324 (38 Fe ) MG TAKE 1 TABLET BY MOUTH TWICE A DAY WITH WATER OR JUICE BETWEEN MEALS Losartan Potassium 25 MG 1 tablet Orally Once a day Pending Test Test Name Order Date PROFILE, RANDOM (COMPREHENSIVE METABOLIC ) 05/16/2024 CBC w DIFF 05/16/2024 Ferritin 05/16/2024 Next Appt Details Follow Up: 6 Months, Reason: OV Provider Name:Azar Dewey , 02/14/2025 09:15:00 AM, [address] [place] [address] DR, [facility] [address], [place], [address], Progress Notes * Shayne MARTINEZOB: 2 (83 yo F)Acc No.[id number]:05/16/2024 Progress Notes Patient: Theodora BEVERLY Provider: Rylan Dewey MD :1940 A ge:83 Y S ex:Female Date:05/16/2024 Address:[address] [place], [place] [id number] Pcp:Aristeo Gan MD Subjective: * Chief Complaints: * I mitra deficiency anemiaHypertensionDiabetesPeripheral vascular diseaseHypercalcemia * HPI: C OVID-19 Screening: She is seen here regularly manage iron deficiency anemia. She has been compliant with taking the ferrous sulfate daily. There is in the normal range but low. Iron. Her no new complaints. He says his diabetes is well controlled and she has no lower extremity claudication. She denies any recent TIAs. Blood work that was done May 09, 2024 showed white blood cells 12.9 with 8.8 neutrophils and 2.3 lymphocytes, hematocrit 34.1, mean cell volume 95 platelets 213 reticulocytes 1.4% ferritin 31 glucose 104 BUN 16 creatinine 0.99 and calcium 10.3. Questions H ave you had any new onset fever, chills, cough, congestion, sore throat, shortness of breath, muscle aches? N o * ROS: G eneral/Constitutional: pain [...] is Edwin Wang. She is not a Zoroastrian. 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 She was born in [place], [place]. * Medications: T akingLosartan Potassium 25 [...] Verified] Objective: * Vitals: H t: 62, Wt:136, BMI:24.87, BP:139/58, HR:77, Temp:97.2, Wt-k.69. * Examination: G eneral Examination: GENERAL APPEARANCE: p leasant, well nourished, well developed, in no acute distress, calm and relaxed, elderly woman. HEAD: a traumatic, normocephalic. EYES: [...] ferritin is in the normal range at 231She is no longer taking the iron supplementation. She will be followed carefully at long intervals without it. 2 . O verweight - E66.3 N otes :She has lost 3 pounds since her last visit. Her body mass index is now in the normal range.? We reviewed her diet and nutrition and weight loss strategy today. 3 . E ssential hypertension - I10 N otes :Her blood pressure today is 130/70. No change in her regimen was made. 4 . D iabetes mellitus - E11.9 N otes :She reports her fasting glucose levels are under 150. I have added a hemoglobin A1c to her next set of labs. 5 . H istory of stroke - Z86.73 N otes :She suffered a TIA in 2008. She has mild carotid stenosis. She will continue on current medications. 6 . C arotid artery stenosis - I65.29 N otes :She remains asymptomatic and under the care of the vascular surgeon. 7 . H ypercalcemia - E83.52 N otes :The calcium level is now normal. 8 . H yperlipidemia type II - E78.01 N otes :Her lipids are stable and in near target range. No change in her regimen as needed. Plan: * Treatment: 2. O verweight L AB: PROFILE, RANDOM (COMPREHENSIVE METABOLIC) L AB: CBC w DIFF L AB: Ferritin 3. O thers Continue Ferrous Gluconate Tablet, 324 (38 Fe) MG, TAKE 1 TABLET BY MOUTH TWICE A DAY WITH WATER OR JUICE BETWEEN MEALS. * Procedure Codes: * Follow Up: 6 Months (Reason: OV) * Images: * Sign off status: Completed true * Provider: Rylan Dewey MD Date: 0 05/16/2024 Generated for Baldo bey/Dasha/Caitting on: 01:41 PM EDT History and Physical Notes * HPI (History of Present Illness) Category Sub-Category Detail Notes COVID-19 Screening Questions Have you had any new onset fever, chills, cough, congestion, sore throat, shortness of breath, muscle aches?: No Examination Category Sub-Category Detail Notes General Examination GENERAL APPEARANCE: pleasant , well nourished, well developed, in no acute distress, calm and relaxed, elderly woman HEAD: atraumatic, normocep halic EYES: [...] lesion s, anicteric PERIPHERAL PULSES: normal BREASTS: Not examined MUSCULOSKELETAL: extremities unremark able, no clubbing, cyanosis or edema LYMPH NODES: no enlarged lymph no jayden,spleen normal RECTAL EXAM: not examined PSYCH: alert, oriented ORAL CAVITY: normal, unremarkable
--- OUTSIDE RECORDS SUMMARY | 2024-11-15 05:00 | XMS_ITS ---
Author Organization Azar Dewey III, MD Address [address] [place] [address] Care Team Providers Care Lumber Grader Name Role Phone Benedicto ALVAREZ, Luz Maria Primary Care Provider Azar Jacobson III [phone] Aristeo Gan MD Unavailable Unavailable Dr. Azar [...] Problem Status W/U Status Risk Notes Problem [id number] Neutrophilic leukocytosis (D72.828) Active confirmed Her neutrophil [...] Provider Diagnosis Azar Dewey III, MD [address] [place] [address] [address] [place], [place] [address] 11/15/2024 Azar Dewey Iron deficiency anem ia, [...] Provider Name:Azar Dewey , 02/14/2025 09:15:00 AM, [address] [place] [address], [address], Progress Notes * Shayne MARTINEZOB: 2 (83 yo F)Acc No.[id number]:11/15/2024 Progress Notes Patient: Theodora BEVERLY Provider: Rylan Dewey MD :1940 A ge:83 Y S ex:Female Date:11/15/2024 Address:[address] [place], [place] [id number] Pcp:Luz Maria Diane MD Subjective: * Chief [...] is Edwin Wang. She is not a Nondenominational. 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 She was born in [place], [place]. * Medications: T akingLosartan Potassium 25 [...] MD Date: Generated for Baldo bey/Dasha/Steve on: 01:39 PM EDT History and Physical [...]
[2024-11-26 11:13] VITALS: BP 140/72; PULSE 98; O2SAT 98; BMI 24.1
--- NOTE | 2024-11-26 11:13 | HO.NEPHOV_ITS ---
Vital Signs 11/26/24 11:13 Height 5 ft 3 in Weight 136 lb BMI 24.1 BP 140/72 H Blood Pressure Location Lt brachial Position Sitting Pulse 98 Pulse Source Pulse Oximeter Pulse Oximetry (%) 98 Oxygen Delivery Method Room Air Intake Visit Reasons: 6 [facility] Ware Tester Required: No Accompanied by: Self / Same As Patient Allergies No Known Allergies Allergy (Verified 11/26/24 11:15) Medication List - Last Reconciled 11/26/24 by Branden Conley MD amlodipine 5 mg PO DAILY aspirin 81 mg PO DAILY atorvastatin 40 mg PO DAILY losartan 100 mg PO DAILY metformin 1,000 mg PO DAILY HPI Comments Details: Theodora is a pleasant 83-year-old woman with history of hypertension. She has mild CKD with a creatinine 1.01 She had mild hypercalcemia in the range of 10.5. In the past she did not have any monoclonal proteins. [place] lambda chain were checked and ratio was normal She has history of chronic anemia she sees Dr. Dewey. She has been treated for iron deficiency anemia. She has been taking vitamin-D 1000 units once a day for quite some time. 03/01/24 Overall doing well. No new issues ; She is off Vit D 05/31/24 Home BP has been in the normal range. No specific complaints today. 11/26/24 - The patient is an 83-year-old female presenting with chronic kidney disease. - Kidney function is stable with slight changes monitored. - Medications include Amlodipine, Atorvastatin, Losartan, Metformin. - Blood pressure at home is 133 mmHg. - No new symptoms reported. - Anemia resolved, regular check-ups continue. - Recent mammogram completed. [facility] Medical History Tremor of both hands Primary hyperparathyroidism Prediabetes PAD (peripheral artery disease) Iron deficiency anemia Hypertension Hyperlipidemia Hypercalcemia CKD (chronic kidney disease), stage III Anemia Physical Exam Vital Signs: Last Vital Signs Pulse 98 11/26/24 11:13 BP 140/72 H 11/26/24 11:13 Pulse Ox 98 11/26/24 11:13 Oxygen Delivery Method Room Air 11/26/24 11:13 BMI result Body Mass Index 24.1 Comfortable Neck supple no JVD. Lungs entry equal no rales. Heart S1-S2 heard no gallop or rub. Abdomen soft nontender. Neuro alert awake oriented. No asterixis. Extremities no edema. Results Reviewed Nephrology Results: Renal US 11/17/23 Assessment & Plan Assessment & Plan (1) CKD (chronic kidney disease), stage III: Code(s): N18.30 - Chronic kidney disease, stage 3 unspecified Category: Medical (2) Hypercalcemia: Code(s): E83.52 - Hypercalcemia Category: Medical Plan Theodora is a 83-year-old woman with mild CKD in the setting of longstanding hypertension. She might have some age-related decline in EGFR. Overall renal function stable. Creatinine is at 1.2 Hypercalcemia. In the past there were no monoclonal proteins. She has been taking vitamin-D 1000 units a day and she could have hyperkalemia due to excessive vitamin-D intake. Continue to hold vitamin-D 1000 units once a day for now. No MCGP serum calcium remains elevated despite stopping vitamin-D supplementation Mild elevation in PTH (76) - probably has primary hyperpara- Shall watch for now Repeat Ca is normal BP is better controlled at home Office reading is slightly elevated Shall watch Monitor blood pressure at home Continue to stay on low-sodium diet. Orders: Orders Complete Blood Count no Diff 4 Months E83.52 - Hypercalcemia, N18.30 - Chronic kidney disease, stage 3 unspecified Parathyroid Hormone Intact 4 Months E83.52 - Hypercalcemia Comprehensive Met. Panel 4 Months E83.52 - Hypercalcemia, N18.30 - Chronic kidney disease, stage 3 unspecified Coding Level of Care Code Est Pt Level 4 (82659) Diagnoses CKD (chronic kidney disease), stage III N18.30 Hypercalcemia E83.52
--- OUTSIDE RECORDS SUMMARY | 2024-11-26 13:40 | XMS_ITS | Continuity of Care Document ---
Author Organization [facility] [address] [place] [address] Phone [phone] Care Team Providers Care Procurement Agent Name Role Phone Aristeo Gan M.D. Care Team Information Receiv er [phone] Problems Active Problems Provider Date Hypercholesterolemia Deniz [...] SIG Qnty Indications Ordering Provider Date Clopidogrel Sedywktjg93ce Tablets Take 1 Tablet By Mouth Every Day Aristeo Gan M.D. Losartan Qgpzcughq211qn Tablets Take 1 Tablet By Mouth Every Day Aristeo Gan M.D. Atorvastatin Kzzxzhq74hf Tablets Take 1 Tablet By Mouth Every Day Aristeo Gan M.D. Amlodipine Sgggahnu8ia Tablets Take 1 Tablet By Mouth Every Day Aristeo Gan M.D. Metformin [id number] Tablets Take half Tablet By Mouth Twice [...] Referral Status Appt Deniz Mendez M.D. Created [address] [place] [address] [address] [place] [address] [phone]
--- OUTSIDE RECORDS SUMMARY | 2024-11-26 13:40 | XMS_ITS | Patient Health Record ---
Author Organization Azar Dewey III, MD Address [address] [place] [address] Care Team Providers Care Overlock Sleeve Setter Name Role Phone Benedicto ALVAREZ, Luz Maria Primary Care Provider Azar Jacobson III [phone] Aristeo Gan MD Unavailable Unavailable Dr. Azar [...] Problem Status W/U Status Risk Notes Problem 542434645 Overweight (E66.3) Active confirmed She has lost 3 pounds since her last visit. Her body mass index is now in the normal range. We reviewed her diet and nutrition and weight loss strategy today. Problem 31665523 Diabetes mellitus (E11.9) Active confirmed She reports her fasting glucose levels are under 150. I have added a hemoglobin A1c to her next set of labs. Problem 70906266 Hypercalcemia (E83.52) Active confirmed The calcium level is now normal. Problem 95653202 Iron deficiency anemia, unspecified iron deficiency (D50.9) Active confirmed Her hematocrit and mean cell volume and ferritin are all in the normal range. Her ferritin is in the normal range at 231She is no longer taking the iron supplementati on. She will be followed carefully at long intervals without it. Problem 96859209 Essential hypertension (I10) Active confirmed Her blood pressure is currently stable. Problem 305523137 Peripheral vascular disease (I73.9) Active confirmed She denies any lower extremity claudication or neurological symptoms. I did not hear a carotid bruit today. Problem 023576199 History of stroke (Z86.73) Active confirmed She suffered a TIA in 2008. She has mild carotid stenosis. She will continue on current medications. Problem 01244485 Carotid artery stenosis (I65.29) Active confirmed She remains asymptomatic and under the care of the vascular surgeon. Problem Pure hypercholesterolemia (558487827) Hyperlipidemia type II (E78.01) Active confirmed Her lipids are stable and in near target range. No change in her regimen as needed. Problem 859719732 Neutrophilic leukocytosis (D72.828) Active confirmed Her neutrophil [...] Date Provider Diagnosis Azar Dewey III, MD [address] [place] [address] [address] [place] [address] 05/16/2024 Azar Dewey Iron deficiency anem ia, unspecified iron deficiency D50.9 ; Overweight E66.3 ; Essential hypertension I10 ; Diabetes mellitus E11.9 ; History of stroke Z86.73 ; Carotid artery stenosis I65.29 ; Hypercalcemia E83.52 and Hyperlipidemia type II E78.01 Azar Dewey III, MD [address] [place] [address] [address] [place] [address] 11/15/2024 Azar Dewey Iron deficiency anem ia, [...] C) 11/15/2024 PROFILE, RANDOM (COMPREHENSIVE METABOLIC ) 05/16/2024 PROFILE, RANDOM (COMPREHENSIVE METABOLIC ) 06/16/2018 PROFILE, RANDOM (COMPREHENSIVE METABOLIC ) 12/27/2019 PROFILE, RANDOM (COMPREHENSIVE METABOLIC ) 11/16/2023 PROFILE, RANDOM (COMPREHENSIVE METABOLIC ) 07/09/2021 PROFILE, RANDOM (COMPREHENSIVE METABOLIC ) 07/23/2019 PROFILE, RANDOM (COMPREHENSIVE METABOLIC ) 07/09/2022 PROFILE, RANDOM (COMPREHENSIVE METABOLIC ) 03/23/2019 PROFILE, RANDOM (COMPREHENSIVE METABOLIC ) 12/26/2020 PROFILE, RANDOM (COMPREHENSIVE METABOLIC ) 01/08/2022 PROFILE, RANDOM (COMPREHENSIVE METABOLIC ) 12/21/2018 HEMOGLOBIN A1C (GLYCOHEMOGLOBIN) 019 CALCIUM 07/23/2019 CALCIUM 03/23/2019 FERRITIN 03/23/2019 FERRITIN 12/21/2018 FERRITIN 12/27/2019 FERRITIN 06/16/2018 FERRITIN 07/09/2022 FERRITIN 07/23/2019 FERRITIN 12/26/2020 CBC w DIFF 07/23/2019 CBC w DIFF [...] WITH AUTO DIFF 11/16/2023 RETIC 11/16/2023 Ferritin 01/08/2022 Ferritin 01/14/2023 Ferritin 05/16/2024 Ferritin 07/15/2023 Ferritin 07/09/2021 Ferritin 11/16/2023 Ferritin 11/15/2024 Lipid Panel 01/14/2023 Lipid Panel 07/15/2023 Microalbumin, Random 01/14/2023 Microalbumin, Random 07/15/2023 Hemoglobin A1c 07/15/2023 Hemoglobin A1c 01/14/2023 Next Appt Details Provider Name:Azar Mitzy Dewey , 02/14/2025 09:15:00 AM, [address] [place] [address] [address], [address], [place], [address], Insurance Providers Payer Name Payer Address Payer Phone Subscriber Number Group Number Insured Name Patient Relationship to Insured Coverage Start Date Coverage End Date [facility] [address] [place] [phone] [id number] Theodora Mccormack Self - patient is the insured MEDICARE NGS [address] [place] [phone] [id number] Theodora Mccormack Self - patient is the insured Medical (General) History Medical History History ICD Code hypertension diabetes mellitus stroke 2009 anemia hyperlipidemia bilateral carotid stenosis postmenopausal Surgical History Surgery Date(Month/Year) No history Cataract surgery 08/2020 Hospitalization History Reason Date(Month/Year) No history
--- OUTSIDE RECORDS SUMMARY | 2024-11-26 13:41 | XMS_ITS | Patient Health Record ---
Author Organization [facility] Address [address] [place] [address] Care Team Providers Care Qualitative Field Project Manager Name Role Phone Kathleen (RETIRED) Edwin ALVAREZ [...] Status Risk Notes Problem Iron deficiency anemia (82680036) Unspecified iron deficiency anemia (280.9) Active confirmed Plan Of Treatment Future Test Test Name Order Date UPPER GI ENDOSCOPY 04/15/2011 COLONOSCOPY 04/15/2011 Insurance Providers Payer Name Payer Address Payer Phone Subscriber Number Group Number Insured Name Patient Relationship to Insured Coverage Start Date Coverage End Date [facility] [address] [place] [address] [id number] CÉSAR MARTINEZ Self - patient is the insured MEDICARE OF [place] [address] [place] [address] [id number] CÉSAR MARTINEZ Self - patient is the insured Medical (General) History Medical History History ICD Code hypertension elevated blood sugar, diabetes TIA elevated cholesterol coronary disease, history of [place] Denies Lung disease,renal disease Surgical History Surgery Date(Month/Year) wrist surgery
== END 2024-11-26 11:27 | disposition home or self-care (01) ==
LOC: HO.HKA 11:10
PROVIDERS: PCP Family Medicine; Visit Provider Internal Medicine Hypertension Specialist
DX: N18.30 Chronic kidney disease, stage 3 unspecified (principal); E83.52 Hypercalcemia
CPT/HCPCS: 99214

== ENCOUNTER → 2024-11-26 11:10 | Outpatient (BNVA) | payer MEDICARE, SELFPAY | PROVIDERS: PCP Family Medicine; Visit Provider Internal Medicine Hypertension Specialist | DX: N18.30 Chronic kidney disease, stage 3 unspecified (principal); E83.52 Hypercalcemia; Z79.84 Long term (current) use of oral hypoglycemic drugs | CPT/HCPCS: 99212 ==